=== PATIENT | female | born 1960 | race Caucasian/White ===

== ENCOUNTER 2016-08-10 21:03 | Inpatient (IN) ==
[2016-08-10] MEDS ORDERED: DUONEB (A & A) INH ONE ×2 (22:06→23:37)
[2016-08-10 22:28] LABS: ALLEN TEST YES; BE 5.9 mmoll (-3.0-3.0); BLOOD TYPE ARTERIAL; DRAW SITE R BRACHIAL; METHB 1.6 % (0.0-1.5); O2(CT) 16.6 mL/dL (15.0-23.0); PCO2(98.6) 50 mmHg (35-45); PO2(98.6) 92 mmHg (60-100); SAMPLE BLOOD; SAO2 99.4 % (95.0-100.0); THB 12.3 g/dL (11.5-17.4); pH(98.6) 7.41 (7.35-7.45)
[2016-08-10 22:30] LABS: MODALITY CANNULA
[2016-08-10 22:31] LABS: MANUAL DIFF NEEDED? NO
[2016-08-10 22:33] LABS: BASO% 0.6 % (0.0-0.8); EOS# 0.15 X1000 (0.0-0.7); EOS% 1.7 % (0.0-10.0); HEMATOCRIT 39.6 % (37.0-47.0); HEMOGLOBIN 12.3 g/dL (12.0-16.0); IMM GRAN# 0.02 X1000 (0.0-0.04); IMM GRAN% 0.2 % (0.0-0.5); LYMPH# 1.93 X1000 (1.2-3.4); LYMPH% 22.2 % (20.5-51.1); MCH 25.5 PG (27-31); MCHC 31.1 g/dL (33-37); MCV 82.2 FL (81-99); MONO# 1.03 X1000 (0.11-0.59); MONO% 11.8 % (1.7-9.3); MPV 8.6 FL (7.4-10.4); NEUT% 63.5 % (42.2-75.2); PLT 377 X1000 (130-400); RBC 4.82 XMIL (4.2-5.4)
[2016-08-10 22:46] LABS: AGAP 15; ALBUMIN 3.7 g/dL (3.5-5.0); ALKALINE PHOSPHATASE 118 U/L (32-104); BUN 12 mg/dL (8-22); CALCIUM 8.9 mg/dL (8.8-10.2); CHLORIDE 96 mmol/L (98-107); COSMO 278; GOT 23 U/L (10-30); GPT 13 U/L (10-36); POTASSIUM 3.9 mmol/L (3.5-5.1); SODIUM 138 mmol/L (136-145); TCO2 27 mmol/L (25-35); TOTAL BILIRUBIN 0.22 mg/dL (0.20-1.00); TOTAL PROTEIN 7.6 g/dL (6.3-8.3)
[2016-08-10] MEDS ORDERED: SOLU-MEDROL IV ONE (23:38)
[2016-08-11] MEDS ORDERED: HUMULIN R SUBQ ONE (00:33)
[2016-08-11] MEDS ORDERED: TYLENOL PO ONE (02:59)
[2016-08-11] MEDS ORDERED: DUONEB (A & A) INH ONE (03:52)
--- NOTE | 2016-08-11 05:56 | HISTORY AND PHYSICAL ---
PRIMARY CARE PROVIDER: REESE Mcadams. BEFORE SCHOOL: In the past was Dr. Chase. CHIEF COMPLAINT: Shortness of breath. HISTORY OF PRESENT ILLNESS: Ms. Anat Jauregui is a 55-year-old, female with a history of severe COPD, chronic left leg DVT with a history of having pulmonary emboli who takes Eliquis as her anticoagulant, and who also has a history of diabetes, hypertension, and GERD. States that on Friday evening, she started having some shortness of breath. She went to work on Friday but left due to increasing and worsening shortness of breath. At that time, she did not want to go to the hospital but as the wheezing and shortness of breath increased with some subjective fevers, her daughter talked her into coming. She is audibly wheezing. She also has a history of DVT of the left leg with pulmonary emboli. She has normal kidney function so we will order a CTA of the pulmonary system to rule out pulmonary emboli. Her ABGs show that she has a pH of 7.41, a pCO2 of 40 on 2 L nasal cannula. She continues to be short of breath despite multiple albuterol and Atrovent nebulizations. PAST MEDICAL HISTORY: Pulmonary emboli, DVT of the left leg, on Eliquis. COPD , diabetes mellitus type 2, hypertension, GERD, hyperlipidemia, insomnia, chronic chest pain. SOCIAL HISTORY: She quit smoking 8 years ago but prior to that, she smoked a half pack per day for 35 years. Denies alcohol or illicit drug use. Lives at home with her and 15-year-old daughter, and currently works. SURGICAL HISTORY: Cholecystectomy, section, and left foot tumor removal. FAMILY HISTORY: Father had a heart murmur and from an intestinal blockage. Mother from pneumonia. REVIEW OF SYSTEMS: Fourteen point review of systems was complete and all were negative except for those mentioned above in the HPI. She denies having any cough, coughing up any phlegm. ALLERGIES: Levaquin. HOME MEDICATIONS: Have not been verified but she takes Eliquis 2.5 mg twice daily at home for her DVT history. It looks like she has had a history of taking gabapentin, magnesium, metformin, Januvia, Prilosec, Dulera, albuterol, Spiriva but, again, these medications have not been verified by the nursing staff. LABORATORY DATA: White blood cells 8000, hemoglobin 12, hematocrit 39, platelet count 377,000. ABGs on 2 L nasal cannula, pH is 7.41, pCO2 50, PO2 92, bicarb 29, base excess 5.9, saturation 95%. Lactate 1.5. Sodium 138, potassium 3.9, BUN 12, creatinine 0.9, glucose 126. Total bilirubin 0.22, AST 23, ALT 13. ProBNP 540. Serum lactate is 1.8. IMAGING: Pulmonary CT pending. Chest x-ray, no signs of pulmonary edema, although the costovertebral angles are shadowed. PHYSICAL EXAMINATION: VITAL SIGNS: Temperature 99.8 degrees, heart rate 113, respiratory rate 20, blood pressure 131/79, O2 saturation 100% on 2 L nasal cannula. GENERAL: Ms. Jauregui is a 55-year-old, female. She is in no acute distress. She is able to answer questions appropriately. HEENT: Atraumatic, normocephalic. Pupils equal, round, reactive to light. Extraocular movements intact. No erythema of the oropharynx. NECK: No JVD or carotid bruits noted. CARDIOVASCULAR: S1, S2. Tachycardic rate and rhythm. No rubs, gallops, murmurs. PULMONARY: Expiratory wheezes throughout anterior, posteriorly with prolonged expiration. No accessory muscle use or work of breathing noted. Currently on 2 L nasal cannula. GI: Soft, nontender, nondistended. Positive bowel sounds x4. EXTREMITIES: Left lower extremity mildly swollen compared to the right with some venous stasis changes. She has +2 dorsalis pedal pulses and radial pulses. NEUROLOGIC: A and O x4. Moves all extremities equally. ASSESSMENT AND PLAN: 1. Chronic obstructive pulmonary disease exacerbation. We will do Xopenex nebulizers, given her tachycardic heart rate, with Atrovent, budesonide, and acetylcysteine. She will do intravenous steroids and Rocephin. She does have a low-grade fever of 99.8 but she denies having any productive cough. The shortness of breath or wheezing has been going on for about a day and a half now. She has a history of smoking but quit 8 years ago. 2. Community Acquired Pneumonia. Per Pulmonary CT. Azithromycin and Rocephin. 3. History of deep venous thrombosis in the left leg with history of pulmonary emboli. Given her shortness of breath, pulmonary arteriogram did rule out pulmonary emboli. I will continue her on her Eliquis. She takes 2.5 twice a day. We will do 5 twice a day for now. 4. Diabetes mellitus type 2. We will do sliding scale insulin with pattern blood glucoses at home. She only takes oral medications. Likely may have issues where the blood glucoses will run a little higher, given that she will be on intravenous steroids. 5. Hypertension. Appears to be stable at this moment. We will await for home medications to be verified. 6. Gastroesophageal reflux disease. Continue with a proton pump inhibitor. 7. Deep venous thrombosis prophylaxis. Again, we will resume her Eliquis but at a higher dose of 5 twice a day. Dictated by REESE Fung for Virgen Ruth MD cc: REESE Fung MD Diana Wilhite, CRNP MTDD
[2016-08-11] MEDS ORDERED: ZOFRAN IV PRN (06:08)
[2016-08-11] MEDS ORDERED: TYLENOL PO PRN (06:08)
[2016-08-11] MEDS: NS 1,000 ML IV SCH ×2 (06:34→20:26)
[2016-08-11] MEDS: SOLU-MEDROL IV SCH ×2 (06:35→12:48)
[2016-08-11] MEDS: ROCEPHIN 1 GM/NS 1 GM/50 ML IVPB IV SCH (06:35)
[2016-08-11] MEDS: PRILOSEC PO SCH (07:04)
[2016-08-11] MEDS: HUMULIN R SUBQ SCH ×4 (07:04→20:35)
[2016-08-11] MEDS: XOPENEX NEB INH SCH ×5 (08:33→23:00)
[2016-08-11] MEDS: ATROVENT NEB INH SCH ×5 (08:33→23:00)
[2016-08-11] MEDS: PULMICORT INH SCH ×2 (08:33→19:10)
[2016-08-11] MEDS: MUCOMYST 20% INH SCH ×2 (08:33→19:10)
[2016-08-11] MEDS ORDERED: OSCAL 500 + D PO SCH (09:00)
--- NOTE | 2016-08-11 09:11 | Diag Imaging Result Document ---
PROCEDURE NAME: ANGIOGRAM/PULMONARY ARTERIES - 08/11/2016 CT PULMONARY ANGIOGRAM WITH INTRAVENOUS CONTRAST, 08/11/2016: A CT dose reduction protocol was used. COMPARISON: 12/08/2010. TECHNIQUE: Axial CT images of the chest were obtained after administering intravenous contrast. Coronal MIP images were generated. FINDINGS: There is no pulmonary embolism. There are mildly enlarged left tracheobronchial angle and anterior mediastinal lymph nodes that were present previously. These are slightly larger on today's exam. There is some infiltrate in the right lower lobe and right middle lobe consistent with pneumonia. There is also some trace infiltrate in the left upper lobe. Heart size is normal with no pericardial effusion. Extensive degenerative changes of the thoracic spine. No acute bony lesions. IMPRESSION: Negative for pulmonary embolism. Mild bilateral infiltrates suggesting pneumonia. Slight increase in nonspecific mediastinal adenopathy. MTDD
[2016-08-11] MEDS: ULTRAM PO PRN ×2 (10:36→20:35)
[2016-08-11] MEDS: MAG-OX PO SCH ×2 (10:37→20:29)
[2016-08-11] MEDS: ZITHROMAX 500 MG/NS 500 MG/250 ML IVPB IV SCH (10:37)
[2016-08-11] MEDS: ELIQUIS PO SCH ×2 (10:37→20:29)
[2016-08-11] MEDS: NEURONTIN PO SCH ×2 (10:37→20:29)
--- NOTE | 2016-08-11 11:41 | Diag Imaging Result Document ---
PROCEDURE NAME: CHEST-PORTABLE - 08/10/2016 PORTABLE CHEST: COMPARISON: 06/06/2016. FINDINGS: There are some minimal patchy bilateral infiltrates in the bases. Heart size is normal. No pneumothorax or large effusion. Stable granuloma in the right apex. IMPRESSION: Subtle, patchy bilateral basilar infiltrates suggesting pneumonia.
[2016-08-11] MEDS: LIPITOR PO SCH (20:29)
[2016-08-12] MEDS: SOLU-MEDROL IV SCH ×4 (00:37→19:01)
[2016-08-12] MEDS: XOPENEX NEB INH SCH ×6 (03:20→23:10)
[2016-08-12] MEDS: ATROVENT NEB INH SCH ×6 (03:20→23:10)
[2016-08-12] MEDS: ULTRAM PO PRN (04:24)
[2016-08-12] MEDS: ROCEPHIN 1 GM/NS 1 GM/50 ML IVPB IV SCH (05:47)
[2016-08-12] MEDS: HUMULIN R SUBQ SCH ×4 (06:38→20:36)
[2016-08-12] MEDS: PRILOSEC PO SCH (06:47)
--- NOTE | 2016-08-12 07:00 | EKG Report ---
Test Performed on : 08/10/2016 9:15:28 PM Test Reason : SOB Blood Pressure : / mmHG Vent. Rate : 107 BPM Atrial Rate : 107 BPM P-R Int : 134 ms QRS Dur : 110 ms QT Int : 360 ms P-R-T Axes : -01 -85 077 degrees QTc Int : 480 ms Sinus tachycardia. Left anterior fascicular block Anterolateral infarct , age undetermined Abnormal ECG When compared with ECG of 14-JAN-2015 10:38, Left anterior fascicular block is now present Anterior infarct is now present Anterolateral infarct is now present T wave amplitude has increased in Anterior leads Unconfirmed Result
[2016-08-12 07:10] LABS: BASO% 0.2 % (0.0-0.8); EOS# 0.04 X1000 (0.0-0.7); EOS% 0.4 % (0.0-10.0); HEMATOCRIT 37.6 % (37.0-47.0); HEMOGLOBIN 11.7 g/dL (12.0-16.0); IMM GRAN# 0.03 X1000 (0.0-0.04); IMM GRAN% 0.3 % (0.0-0.5); LYMPH# 1.63 X1000 (1.2-3.4); LYMPH% 14.8 % (20.5-51.1); MANUAL DIFF NEEDED? YES; MCHC 31.1 g/dL (33-37); MCV 83.6 FL (81-99); MONO# 0.38 X1000 (0.11-0.59); MONO% 3.4 % (1.7-9.3); MPV 8.8 FL (7.4-10.4); NEUT% 80.9 % (42.2-75.2); PLT 395 X1000 (130-400)
[2016-08-12 07:26] LABS: AGAP 14; ALBUMIN 3.4 g/dL (3.5-5.0); ALKALINE PHOSPHATASE 99 U/L (32-104); BUN 15 mg/dL (8-22); CALCIUM 8.5 mg/dL (8.8-10.2); CHLORIDE 101 mmol/L (98-107); COSMO 295; GOT 26 U/L (10-30); GPT 18 U/L (10-36); SODIUM 142 mmol/L (136-145); TCO2 27 mmol/L (25-35); TOTAL BILIRUBIN 0.13 mg/dL (0.20-1.00); TOTAL PROTEIN 7.4 g/dL (6.3-8.3)
[2016-08-12 07:28] LABS: BANDS 6 % (0-1); LYMPHS 20 % (21-51)
[2016-08-12] MEDS: PULMICORT INH SCH ×2 (07:55→19:25)
[2016-08-12] MEDS: MUCOMYST 20% INH SCH ×2 (07:55→19:25)
[2016-08-12] MEDS: OSCAL 500 + D PO SCH ×2 (09:04→20:35)
[2016-08-12] MEDS: MAG-OX PO SCH ×2 (09:04→20:35)
[2016-08-12] MEDS: NEURONTIN PO SCH ×2 (09:04→20:35)
[2016-08-12] MEDS: ELIQUIS PO SCH ×2 (09:04→20:35)
[2016-08-12] MEDS: ZITHROMAX 500 MG/NS 500 MG/250 ML IVPB IV SCH (09:04)
[2016-08-12] MEDS: LANTUS SUBQ SCH (09:06)
[2016-08-12] MEDS: NS 1,000 ML IV SCH (10:15)
[2016-08-12] MEDS ORDERED: LASIX IV ONE (11:15)
--- NOTE | 2016-08-12 15:28 | PROGRESS NOTE ---
DATE: 08/12/2016 SUBJECTIVE: This patient states that she is feeling better, she denies nausea, vomiting, no diarrhea, no constipation. She is still having shortness of breath, but compared with yesterday is better. OBJECTIVE: Vital Signs: Temperature 98, pulse 97, respiratory rate 18, blood pressure 131/63, O2 saturation 98% on 2 L of nasal cannula. HEENT: Head normocephalic. No trauma. PERRLA. Neck: Supple. No JVD. No masses. Central trachea. Chest: Clear to auscultation, bilateral end- expiratory wheezing. Prolonged expiratory phase. No rales. No crackles. Abdomen: Soft, nontender, nondistended. No hepatosplenomegaly. Cardiovascular: Regular rhythm and rate. No murmurs. Extremities: Trace edema. No clubbing. No cyanosis. Neurological: The patient is alert and oriented x3. No focal neurological deficits. LABORATORY: WBC 11, hemoglobin 11.7, hematocrit 37.6, platelets 395,000. Sodium 142, potassium 4, chloride 101, bicarbonate 27, BUN 15, creatinine 0.8, glucose 292, calcium 8.5, albumin 3.4. ASSESSMENT AND PLAN: 1. Chronic obstructive pulmonary disease exacerbation. We will continue with nebulization and steroids. Continue with antibiotics as well, breathing treatment and pulmonary toilet. She is getting better. 2. Community-acquired pneumonia. Continue with ceftriaxone and azithromycin. 3. History of deep venous thrombosis in the left leg with history of pulmonary emboli. We will continue with Eliquis. She takes 2.5 twice a day. We will do 5 twice a day for now. 4. Type 2 diabetes. She has been on sliding scale, but today I will put this patient on Lantus, 10 units q.a.m. and I will monitor the blood sugar. 5. Hypertension, stable. Continue with home medication. 6. Gastroesophageal reflux disease. Continue with proton pump inhibitor. 7. Deep venous thrombosis prophylaxis. Continue with Eliquis. cc: Chase Mckeon MD
[2016-08-12] MEDS: LIPITOR PO SCH (20:35)
[2016-08-12] MEDS: MORPHINE IV PRN (20:37)
[2016-08-13] MEDS: SOLU-MEDROL IV SCH ×4 (00:25→21:58)
[2016-08-13] MEDS: MORPHINE IV PRN ×2 (00:27→21:22)
[2016-08-13] MEDS: ATROVENT NEB INH SCH ×6 (03:33→23:10)
[2016-08-13] MEDS: XOPENEX NEB INH SCH ×6 (03:33→23:10)
[2016-08-13] MEDS: PRILOSEC PO SCH (06:00)
[2016-08-13] MEDS: ROCEPHIN 1 GM/NS 1 GM/50 ML IVPB IV SCH (06:12)
[2016-08-13] MEDS: HUMULIN R SUBQ SCH ×4 (06:46→22:01)
[2016-08-13 07:41] LABS: BASO% 0.1 % (0.0-0.8); EOS# 0.01 X1000 (0.0-0.7); EOS% 0.1 % (0.0-10.0); HEMATOCRIT 35.8 % (37.0-47.0); HEMOGLOBIN 10.8 g/dL (12.0-16.0); IMM GRAN# 0.07 X1000 (0.0-0.04); IMM GRAN% 0.4 % (0.0-0.5); LYMPH# 1.79 X1000 (1.2-3.4); LYMPH% 11.2 % (20.5-51.1); MANUAL DIFF NEEDED? YES; MCH 25.5 PG (27-31); MCHC 30.2 g/dL (33-37); MCV 84.4 FL (81-99); MONO# 0.43 X1000 (0.11-0.59); MONO% 2.7 % (1.7-9.3); MPV 9.2 FL (7.4-10.4); NEUT% 85.5 % (42.2-75.2); PLT 361 X1000 (130-400); RBC 4.24 XMIL (4.2-5.4)
[2016-08-13 07:44] LABS: AGAP 15; BUN 19 mg/dL (8-22); CALCIUM 8.4 mg/dL (8.8-10.2); CHLORIDE 98 mmol/L (98-107); COSMO 284; POTASSIUM 4.5 mmol/L (3.5-5.1); SODIUM 137 mmol/L (136-145); TCO2 24 mmol/L (25-35)
[2016-08-13] MEDS: ZITHROMAX 500 MG/NS 500 MG/250 ML IVPB IV SCH (07:56)
[2016-08-13] MEDS: NEURONTIN PO SCH ×2 (08:01→21:58)
[2016-08-13] MEDS: OSCAL 500 + D PO SCH ×2 (08:01→21:58)
[2016-08-13] MEDS: MAG-OX PO SCH ×2 (08:01→21:58)
[2016-08-13] MEDS: ELIQUIS PO SCH ×2 (08:01→22:03)
[2016-08-13] MEDS: LANTUS SUBQ SCH (08:02)
[2016-08-13 08:08] LABS: BANDS 2 % (0-1); LYMPHS 16 % (21-51)
[2016-08-13] MEDS: MUCOMYST 20% INH SCH ×2 (08:15→19:25)
[2016-08-13] MEDS: PULMICORT INH SCH ×2 (08:15→19:25)
[2016-08-13] MEDS ORDERED: DULCOLAX PR ONE (13:16)
--- NOTE | 2016-08-13 13:52 | PROGRESS NOTE ---
DATE: 08/13/2016 SUBJECTIVE: This patient states that she is feeling better. She is complaining of constipation. She denies nausea, vomiting, or diarrhea. She is still having mild shortness of breath, but compared with yesterday she is better. Probably this patient will stay 1 or 2 more days and then she will be discharged home. OBJECTIVE: Vital Signs: Temperature 97.7 degrees, pulse 94, respiratory rate 28, blood pressure 132/72, oxygen saturation 96 on room air. HEENT: Head normocephalic. No trauma. PERRLA. Neck: Supple. No JVD. No masses. Central trachea. Chest: Clear to auscultation bilateral and end- expiatory wheezing, but compared with yesterday it is much better. Prolonged expiatory phase. No rales. No crackles. Abdomen: Soft, nontender, nondistended. No hepatosplenomegaly. Cardiovascular: RRR. No murmurs. No gallops. No rubs. Extremities: No edema. No clubbing. No cyanosis. Neurological examination: The patient is alert and oriented x3. No focal neurological deficits. LABORATORY: WBC 16, hemoglobin 10.8, hematocrit 35.8, platelets 361. Sodium 137, potassium 4.5, chloride 98, bicarbonate 24, BUN 19, creatinine 0.8, glucose 243, calcium 8.4. ASSESSMENT AND PLAN: 1. Chronic obstructive pulmonary disease exacerbation. We will continue with nebulization and steroids. I will decrease the dose of steroids from 80 q. 6 hours to 40 q. 8 hours intravenous. Continue with antibiotics as well, breathing treatment and pulmonary toilet. She is getting better. 2. Community-acquired pneumonia. Continue with ceftriaxone and azithromycin. 3. History of deep vein thrombosis in the left leg with history of pulmonary emboli. Continue with Eliquis. She takes 2.5 twice a day. We will do 5 twice a day for now. 4. Type 2 diabetes. She has been on sliding scale. Yesterday, I put this patient on Lantus 10, but I will increase the dose of Lantus to 20 every morning. I will continue monitoring the blood sugar. 5. Hypertension, stable. Continue home medication. 6. Gastroesophageal reflux disease. Continue with proton pump inhibitors. 7. Deep vein thrombosis prophylaxis. Continue with Eliquis. 8. Constipation. I will use Dulcolax suppository and MiraLAX daily oral. cc: Chase Mckeon MD
[2016-08-13] MEDS: LIPITOR PO SCH (21:58)
[2016-08-14] MEDS: XOPENEX NEB INH SCH ×6 (03:40→23:00)
[2016-08-14] MEDS: ATROVENT NEB INH SCH ×6 (03:40→23:00)
[2016-08-14] MEDS: ROCEPHIN 1 GM/NS 1 GM/50 ML IVPB IV SCH (05:46)
[2016-08-14] MEDS: SOLU-MEDROL IV SCH ×2 (05:46→12:17)
[2016-08-14] MEDS: MIRALAX PO SCH ×2 (05:58→10:57)
[2016-08-14] MEDS: HUMULIN R SUBQ SCH ×5 (06:19→20:36)
[2016-08-14 06:53] LABS: MANUAL DIFF NEEDED? NO
[2016-08-14 06:58] LABS: BASO% 0.1 % (0.0-0.8); HEMATOCRIT 36.3 % (37.0-47.0); IMM GRAN# 0.14 X1000 (0.0-0.04); IMM GRAN% 0.9 % (0.0-0.5); LYMPH# 2.28 X1000 (1.2-3.4); LYMPH% 14.8 % (20.5-51.1); MCH 25.5 PG (27-31); MCHC 30.3 g/dL (33-37); MCV 84.2 FL (81-99); MONO# 0.75 X1000 (0.11-0.59); MONO% 4.9 % (1.7-9.3); MPV 8.7 FL (7.4-10.4); NEUT% 79.3 % (42.2-75.2); PLT 382 X1000 (130-400); RBC 4.31 XMIL (4.2-5.4)
[2016-08-14] MEDS: PRILOSEC PO SCH (07:12)
[2016-08-14 07:29] LABS: AGAP 12; BUN 26 mg/dL (8-22); CALCIUM 8.6 mg/dL (8.8-10.2); CHLORIDE 97 mmol/L (98-107); COSMO 289; POTASSIUM 4.4 mmol/L (3.5-5.1); SODIUM 139 mmol/L (136-145); TCO2 30 mmol/L (25-35)
[2016-08-14] MEDS: ZITHROMAX 500 MG/NS 500 MG/250 ML IVPB IV SCH (08:09)
[2016-08-14] MEDS: OSCAL 500 + D PO SCH ×2 (08:10→20:36)
[2016-08-14] MEDS: ELIQUIS PO SCH ×2 (08:10→20:36)
[2016-08-14] MEDS: NEURONTIN PO SCH ×2 (08:10→20:36)
[2016-08-14] MEDS: MAG-OX PO SCH ×2 (08:10→20:36)
[2016-08-14] MEDS: LANTUS SUBQ SCH (08:11)
[2016-08-14] MEDS: PULMICORT INH SCH ×2 (08:22→19:38)
[2016-08-14] MEDS: MUCOMYST 20% INH SCH ×2 (08:23→19:37)
--- NOTE | 2016-08-14 15:04 | PROGRESS NOTE ---
DATE: 08/14/2016 SUBJECTIVE: This patient states that she is feeling better. She had a nasal bleed during the night, likely secondary to oxygen, the right nose. She is not having shortness of breath today or respiratory distress. Probably I will discharge this patient tomorrow morning. I will decrease the dose of the steroids. OBJECTIVE: Vital Signs: Temperature 98.1 degrees, pulse 83, respiratory rate 18, blood pressure 162/82, oxygen saturation 98 on room air. HEENT: Head normocephalic. No trauma. PERRLA. Neck: Supple. No JVD. No masses. Central trachea. Chest: Clear to auscultation with mild end- expiatory wheezing that has been much better compared with admission. Prolonged expiratory phase. No rales. No crackles. Abdomen: Soft, nontender, nondistended. No hepatosplenomegaly. Cardiovascular: RRR. No murmurs. Extremities: No edema. No clubbing. Neurological: This patient is alert and oriented x3. No focal deficits. LABORATORY: WBC 15.3, hemoglobin 11, hematocrit 36.3, platelets 382,000. Sodium 139, potassium 4.4, chloride 97, bicarbonate 30, BUN 26, creatinine 0.8, glucose 212, calcium 8.6. ASSESSMENT AND PLAN: 1. Chronic obstructive pulmonary disease exacerbation. Continue with nebulization and steroids. I decreased the dose of steroids from 40 q.8 hours to 40 q.12 hours. Continue with antibiotics, breathing treatment, and pulmonary toilet. She is getting better. I will probably discharge this patient tomorrow. 2. Community-acquired pneumonia. Continue with ceftriaxone and azithromycin. 3. History of deep vein thrombosis in the left leg with history of pulmonary emboli. Continue with Eliquis. 4. Type 2 diabetes. She has been on sliding scale. Yesterday I increased the Lantus to 20. The blood sugar is a little bit better. Continue to monitor. 5. Hypertension, stable. Continue with home medication. 6. Gastroesophageal reflux disease. Continue with PPIs. 7. Deep vein thrombosis prophylaxis. Continue with Eliquis. 8. Constipation. Continue with MiraLAX daily. cc: Chase Mckeon MD
[2016-08-14] MEDS: MORPHINE IV PRN (20:34)
[2016-08-14] MEDS: LIPITOR PO SCH (20:36)
[2016-08-14] MEDS ORDERED: SOLU-MEDROL IV SCH (23:30)
[2016-08-14] MEDS: ULTRAM PO PRN (23:47)
[2016-08-15] MEDS: MORPHINE IV PRN (02:16)
[2016-08-15] MEDS: ATROVENT NEB INH SCH ×4 (03:14→15:56)
[2016-08-15] MEDS: XOPENEX NEB INH SCH ×4 (03:15→15:56)
[2016-08-15] MEDS: ROCEPHIN 1 GM/NS 1 GM/50 ML IVPB IV SCH (06:24)
[2016-08-15] MEDS: HUMULIN R SUBQ SCH ×2 (06:25→12:30)
[2016-08-15] MEDS: PRILOSEC PO SCH (06:25)
[2016-08-15 06:49] LABS: MANUAL DIFF NEEDED? NO
[2016-08-15 06:59] LABS: BASO% 0.1 % (0.0-0.8); EOS# 0.03 X1000 (0.0-0.7); EOS% 0.2 % (0.0-10.0); HEMATOCRIT 38.4 % (37.0-47.0); HEMOGLOBIN 11.9 g/dL (12.0-16.0); IMM GRAN# 0.14 X1000 (0.0-0.04); LYMPH# 2.25 X1000 (1.2-3.4); LYMPH% 16.7 % (20.5-51.1); MCH 25.6 PG (27-31); MCV 82.8 FL (81-99); MONO# 0.62 X1000 (0.11-0.59); MONO% 4.6 % (1.7-9.3); MPV 8.7 FL (7.4-10.4); NEUT% 77.4 % (42.2-75.2); PLT 380 X1000 (130-400); RBC 4.64 XMIL (4.2-5.4)
[2016-08-15 07:19] LABS: AGAP 12; BUN 22 mg/dL (8-22); CHLORIDE 97 mmol/L (98-107); COSMO 285; POTASSIUM 4.8 mmol/L (3.5-5.1); SODIUM 139 mmol/L (136-145); TCO2 30 mmol/L (25-35)
[2016-08-15] MEDS ORDERED: INSULIN PEN NEEDLES ONE (07:38)
[2016-08-15] MEDS: MUCOMYST 20% INH SCH (07:44)
[2016-08-15] MEDS: PULMICORT INH SCH (07:44)
[2016-08-15] MEDS: ZITHROMAX 500 MG/NS 500 MG/250 ML IVPB IV SCH (08:38)
[2016-08-15] MEDS: MAG-OX PO SCH (08:38)
[2016-08-15] MEDS: NEURONTIN PO SCH (08:38)
[2016-08-15] MEDS: ELIQUIS PO SCH (08:38)
[2016-08-15] MEDS: MIRALAX PO SCH (08:38)
[2016-08-15] MEDS: OSCAL 500 + D PO SCH (08:38)
[2016-08-15] MEDS: LANTUS SUBQ SCH (08:39)
[2016-08-15 12:11] VITALS: BP 130/75
--- NOTE | 2016-08-15 16:10 | DISCHARGE SUMMARY ---
ADMISSION DATE: 08/11/2016 DISCHARGE DATE: 08/15/2016 CONSULTATIONS: None. PERTINENT PROCEDURES: Pulmonary arteriogram is negative for PE. It showed mild bilateral infiltrates suggesting pneumonia, slight increase in nonspecific mediastinal adenopathy. DISCHARGE DIAGNOSES: 1. Chronic obstructive pulmonary disease exacerbation resolved. 2. Community-acquired pneumonia. Continue with p.o. antibiotics. 3. History of deep vein thrombosis in the left leg with history of pulmonary emboli. Continue with Eliquis. 4. Diabetes mellitus type 2. Continue home medications. 5. Hypertension stable. 6. Gastroesophageal reflux disease. Continue with proton pump inhibitor. 7. Constipation. Continue with MiraLAX daily. HOSPITAL COURSE: Briefly, Ms. Jauregui is a 55-year-old, female with a history of severe COPD and chronic left DVT with history of having pulmonary emboli who takes Eliquis as her anticoagulation. She also has a history of diabetes mellitus, hypertension, and GERD. She states on Friday evening she started having shortness of breath. She went to work on Friday but left due to increasing worsening shortness of breath. At that time she did not want to go to the hospital but as the wheezing and shortness of breath increased with some subjective fevers she came to the ED. She was audibly wheezing. She underwent a CT of the chest that was negative. ABG showed a pH of 7.41 with pCO2 of 40 on 2 L nasal cannula. She continued to be short of breath despite multiple albuterol and Atrovent nebulizers. Patient was admitted for COPD exacerbation as well as community-acquired pneumonia. Patient was continued on bronchodilators, supplemental O2 as well as home medication and aggressive pulmonary toilet. Clinically the patient has improved and she is appropriate for discharge today. VITAL SIGNS AT DISCHARGE: Temperature 98 degrees, heart rate 82, respirations 20, blood pressure 130/75, O2 is 97% on room air. DISCHARGE MEDICATIONS: As per Dr. Harley. Please see MAR. DISCHARGE DIET: Diabetic. FOLLOWUP: Patient is being discharged home. She will need to follow up with the primary care physician from a list provided to her. She will need to continue with her home medications as well as continue on her p.o. antibiotics. Patient can return to the ED for any worsening of symptoms. DISCHARGE TIME: 30 minutes. Dictated by REESE Sheridan for Chase Mckeon MD cc: Chase Mckeon MD
[2016-08-15] MEDS ORDERED: DOXYCYCLINE PO SCH (21:00)
[2016-08-16] MEDS ORDERED: PREDNISONE PO SCH (09:00)
--- NOTE | 2016-08-16 14:49 | Extremity Venous Study ---
PROCEDURE NAME: Venous U/S Bilateral Legs - 08/11/2016 REFERRING PHYSICIAN: Chito. READING PHYSICIAN: Elizabeth. TEACHER OF THE DEAF: Rad. INDICATION: History of pulmonary embolus and patient shortness of breath. Comparison to study on 04/25/2016. FINDINGS: The deep and superficial veins of the right lower extremity were imaged 1st. All are compressible with forward flow. No thrombus identified. The deep and superficial veins of the left lower extremity were then imaged. There is thrombosis and non-compressibility of the left posterior tibial vein. The other deep and superficial veins were compressible and without thrombus and with forward flow. INTERPRETATION: There is a new deep vein thrombosis of the left posterior tibial vein. cc: MD Toshia Monteiro CRNP
--- NOTE | 2016-08-28 13:44 | PROVIDER DOCUMENTATION ---
This chart was entered by Weston Block Scribe, acting as scribe for Luis Buckner MD. HPI-Respiratory General - General Chief Complaint: Shortness of Breath Stated Complaint: ASTHMA, WHEEZING Time Seen by Provider: 08/10/16 23:16 Source: patient Allergies/Adverse Reactions: Patient Allergies Allergy/AdvReac Type Severity Reaction Status Date / Time levofloxacin [From Levaquin] Allergy ANAPHYLAXIS Verified 08/10/16 21:38 Home Medications: Home Medication List Medication Instructions Recorded Confirmed Last Taken Type Black Cohosh 540 mg PO DAILY 01/21/12 08/11/16 01/19/16 History Calcium Carb/Vit D3/Minerals 600 mg PO BID 01/21/12 08/11/16 01/20/16 History [Calcium 600 + D Tablet] Magnesium 250 mg PO BID 01/21/12 08/11/16 01/20/16 History Metformin [Glucophage] 500 mg PO BID 01/21/12 08/11/16 04/13/16 History Omeprazole [Prilosec] 40 mg PO DAILY 01/21/12 08/11/16 01/20/16 History Triamterene/Hydrochlorothiazid 37 mg PO DIRECTED 01/21/12 08/11/16 01/19/16 05:00 History [Dyazide 37.5-25 Capsule] Zinc [Zinc Chelated] 50 mg PO DAILY 01/21/12 08/11/16 04/13/16 History Albuterol [Albuterol Neb] 2.5 mg INH [id number] 07/26/12 08/11/16 01/20/16 12:15 History Gabapentin 600 mg PO TID 05/12/14 08/11/16 01/20/16 History Sitagliptin Phosphate [Januvia] 100 mg PO DAILY 01/14/15 08/11/16 01/19/16 17: 30 History Amlodipine Besylate 2.5 mg PO DAILY 08/11/16 08/11/16 Unknown History Apixaban [Eliquis] 2.5 mg PO BID 08/11/16 08/11/16 Unknown History Dicyclomine [Bentyl] 10 mg PO TID AC 08/11/16 08/11/16 Unknown History Montelukast Sodium [Singulair] 10 mg PO DAILY 08/11/16 08/11/16 Unknown History Paroxetine [Paxil] 10 mg PO DAILY 08/11/16 08/11/16 Unknown History Ranitidine [Zantac] 150 mg PO DAILY 08/11/16 08/11/16 Unknown History Zolpidem [Ambien] 5 mg PO QHS 08/11/16 08/11/16 Unknown History ATORVAstatin [Lipitor] 10 mg PO HS #90 tablet 08/15/16 Unknown Rx Doxycycline 100 mg PO BID #10 capsule 08/15/16 Unknown Rx Polyethylene Glycol 3350 [Miralax] 17 gm PO DAILY powder, packet 08/15/16 Unknown Rx Prednisone 40 mg PO DAILY #50 tablet 08/15/16 Unknown Rx Tramadol [Ultram] 50 mg PO TID PRN PRN #20 tablet 08/15/16 Unknown Rx Review of Systems - Adult - REVIEW OF SYSTEMS - ADULT Constitutional: reports: no symptoms reported Eyes: reports: no symptoms reported Ears, Nose, Mouth & Throat: reports: no symptoms reported Cardiovascular: reports: no symptoms reported Respiratory: reports: shortness of breath. denies: wheezing Gastrointestinal: reports: no symptoms reported Genitourinary: reports: no symptoms reported Musculoskeletal: reports: no symptoms reported Integumentary: reports: no symptoms reported Neurological: reports: no symptoms reported Psychiatric: reports: no symptoms reported Endocrine: reports: no symptoms reported Hematologic/Lymphatic: reports: no symptoms reported Allergic/Immunologic: reports: no symptoms reported All Other Systems: Reviewed and Negative Past History - Adult - PAST MEDICAL HISTORY-ADULT Review of Records: reports: Old Records Reviewed, Nursing Assessment Review, Medications Reviewed Major Childhood Illnesses: reports: history unknown Cardiovascular: reports: blood clots (legs) Respiratory: reports: asthma, COPD Gastrointestinal: reports: denies history Obstetrical/Gynecological: reports: denies history Genitourinary: reports: denies history Musculoskeletal: reports: denies history Neurological: reports: denies history Psychiatric: reports: denies history Endocrine/Immune: reports: cancer (breast cancer), immunosuppression, other ( lymph nodes removed from right axilla) - IMMUNIZATION STATUS Childhood Immunizations: See Nurse Assessment Flu Vaccine: See Nurse Assessment Physical Exam-General - CONSTITUTIONAL General Appearance: alert, no apparent distress Progress - PLAN OF CARE/RESULTS Result Diagrams: 08/15/16 06:45 08/15/16 06:45 - REASSESSMENT Reassessment #1 Time Reassessed: 00:46 Status: improving (Pt reports that her wheezing has gotten better after 2 breathing treatments) Reassessment #2 Time Reassessed: 02:26 Status: worsening (Pt's wheezing has gotten worse. Pt is 95% O2 on 2L NC) - EKG 1 Time of EKG reading by physician:: 23:56 EKG Read and Signed by:: Luis Buckner EKG Interpretation (*Must complete 3 of following elements*): Abnormal (L anterior fascicular block; Anterolateral infarct, age undetermined) Rate: 107 Rhythm: Sinus tachycardia - XRAY 1 XRAY: Bilateral XRAY Study: Chest Impression: See EMR Report Departure - Departure Time of Disposition Decision: 05:40 DIAGNOSIS: COPD exacerbation Disposition: ADMITTED INPATIENT 09 Certified Medical Emergency: Emergent Condition: Stable - Critical Care Note This patient required my direct personal management.: No This chart was documented by the indicated scribe, (Weston Block, Scrkylie) and accurately reflects the services I performed and decisions made by me, Luis Buckner MD, as attested by the provider's signature.
== END 2016-08-15 16:38 | disposition home or self-care (01) ==
LOC: ED 21:03 → 3N 08-11 04:57 → SUATTDRO 08-11 04:57
PROVIDERS: ATTEND Internal Medicine

== ENCOUNTER 2018-07-18 12:02 | Inpatient (IN) ==
[2018-07-18] MEDS ORDERED: SOLU-MEDROL IV ONE (13:37)
[2018-07-18] MEDS ORDERED: DUONEB (A & A) INH ONE (13:37)
[2018-07-18 14:15] LABS: BASO# 0.02 X1000 (0.0-0.2); BASO% 0.1 % (0.0-0.8); EOS# 0.01 X1000 (0.0-0.7); HEMATOCRIT 38.8 % (37.0-47.0); IMM GRAN# 0.09 X1000 (0.0-0.04); IMM GRAN% 0.4 % (0.0-0.5); LYMPH# 2.59 X1000 (1.2-3.4); LYMPH% 12.3 % (20.5-51.1); MCH 26.8 PG (27-31); MCHC 30.9 g/dL (33-37); MCV 86.6 FL (81-99); MONO# 2.29 X1000 (0.11-0.59); MONO% 10.8 % (1.7-9.3); MPV 8.8 FL (7.4-10.4); NEUT# 16.11 X1000 (1.4-6.5); NEUT% 76.4 % (42.2-75.2); PLT 447 X1000 (130-400); RBC 4.48 XMIL (4.2-5.4); RDW 13.9 % (11.5-14.5); WBC 21.11 X1000 (4.8-10.8)
[2018-07-18 14:17] LABS: URINE SOURCE CLEAN CATCH
[2018-07-18 14:20] LABS: BILIRUBIN URINE NEGATIVE (NEGATIVE); BLOOD URINE NEGATIVE (NEGATIVE); COLOR YELLOW; GLUCOSE URINE NEGATIVE (NEGATIVE); KETONE URINE NEGATIVE (NEGATIVE); LEUKOCYTES URINE NEGATIVE (NEGATIVE); NITRITE URINE NEGATIVE (NEGATIVE); PROTEIN URINE 50 mg/dL (NEGATIVE); SP GRAVITY URINE 1.014; TURBIDITY URINE CLEAR (CLEAR); UROBILINOGEN URINE NORMAL (NORMAL)
[2018-07-18 14:21] LABS: UR EPITHELIAL CELLS <10 /HPF (<10); URINE BACTERIA NEGATIVE /HPF; URINE RBC <10 /HPF (<10); URINE WBC <10 /HPF (<10)
--- NOTE | 2018-07-18 14:42 | PROVIDER DOCUMENTATION ---
This chart was entered by Elenita Clark Scribe, acting as scribe for Jadyn Medina CRNP. HPI-Respiratory General - General Chief Complaint: Shortness of Breath Stated Complaint: SOB Time Seen by Provider: 07/18/18 13:32 Source: patient Allergies/Adverse Reactions: Patient Allergies Allergy/AdvReac Type Severity Reaction Status Date / Time levofloxacin [From Levaquin] Allergy ANAPHYLAXIS Verified 05/11/17 23:15 Home Medications: Home Medication List Medication Instructions Recorded Confirmed Last Taken Type Black Cohosh 540 mg PO HS 01/21/12 05/11/17 05/11/17 16:00 History Calcium Carb/Vit D3/Minerals 600 mg PO BID 01/21/12 05/11/17 05/11/17 16:00 History [Calcium 600 + D Tablet] Magnesium 250 mg PO BID 01/21/12 05/11/17 05/11/17 16:00 History Metformin [Glucophage] 500 mg PO BID 01/21/12 05/11/17 05/11/17 16:00 History Omeprazole [Prilosec] 40 mg PO QAM 01/21/12 05/11/17 05/11/17 06:00 History Zinc [Zinc Chelated] 50 mg PO QHS 01/21/12 05/11/17 05/11/17 16:00 History Albuterol [Albuterol Neb] 2.5 mg INH [id number] 07/26/12 05/11/17 05/11/17 14:00 History Gabapentin 600 mg PO BID 05/12/14 05/11/17 05/11/17 16:00 History Sitagliptin Phosphate [Januvia] 100 mg PO BID 01/14/15 05/11/17 05/11/17 16:00 History Amlodipine Besylate 2.5 mg PO QHS 08/11/16 05/11/17 05/11/17 19:00 History Apixaban [Eliquis] 5 mg PO BID 08/11/16 05/11/17 05/11/17 16:00 History Dicyclomine [Bentyl] 10 mg PO TID AC 08/11/16 05/11/17 05/11/17 16:00 History Montelukast Sodium [Singulair] 10 mg PO QHS 08/11/16 05/11/17 05/11/17 16:00 History Paroxetine [Paxil] 10 mg PO QHS 08/11/16 05/11/17 05/11/17 19:00 History Zolpidem [Ambien] 5 mg PO QHS 08/11/16 05/11/17 05/11/17 19:00 History ATORVAstatin [Lipitor] 10 mg PO HS #90 tablet 08/15/16 05/11/17 05/11/17 16:00 Rx Tramadol [Ultram] 50 mg PO TID PRN PRN #20 tablet 08/15/16 05/11/17 Unknown Rx - History of Present Illness-Resp Nature of Presenting Problem: 57yof with hx of asthma, COPD, diabetes, HTN c/o sob since this morning. She reports she visited her PCP recently and was told she has COPD exacerbation. She reports she is on 3L oxygen at home and usually uses it at night, but has recently been using oxygen during the day as well. She denies fever, chills, nausea, vomiting, diarrhea, cp. Quality of Pain: reports: none Severity in ED: reports: mild Onset/Duration: reports: this morning Timing: reports: still present, constant Cough Quality/Degree: reports: no cough Episode Frequency: other (pt has hx of COPD) Current Respiratory Medication Therapy: Initiated see nurses note Modifying Factors: improves with: nothing Associated Symptoms: reports: shortness of breath. denies: cough, fever/chills Similar Symptoms Previously?: No Recently seen or treated by another doctor?: No Review of Systems - Adult - REVIEW OF SYSTEMS - ADULT Constitutional: denies: chills, fever Eyes: denies: discharge, dry eyes Ears, Nose, Mouth & Throat: denies: ear discharge, ear pain Cardiovascular: denies: chest pain, palpitations Respiratory: reports: shortness of breath. denies: cough Gastrointestinal: denies: abdominal pain, diarrhea, nausea, vomiting Genitourinary: denies: dysuria, hematuria Musculoskeletal: denies: back pain, muscle aches, muscle weakness Integumentary: reports: no symptoms reported Neurological: denies: dizziness/vertigo, headache/migraines Psychiatric: reports: no symptoms reported Endocrine: reports: no symptoms reported Hematologic/Lymphatic: reports: no symptoms reported Allergic/Immunologic: reports: no symptoms reported All Other Systems: Reviewed and Negative Past History - Adult - PAST MEDICAL HISTORY-ADULT Review of Records: reports: Old Records Reviewed, Nursing Assessment Review, Medications Reviewed Major Childhood Illnesses: reports: history unknown Cardiovascular: reports: blood clots (legs), HTN Respiratory: reports: asthma, COPD Gastrointestinal: reports: denies history Obstetrical/Gynecological: reports: denies history Genitourinary: reports: denies history Musculoskeletal: reports: denies history Neurological: reports: denies history Psychiatric: reports: denies history Endocrine/Immune: reports: cancer (breast cancer), Diabetes, immunosuppression, other (lymph nodes removed from right axilla) - PRIOR SURGERIES/PROCEDURES Surgical/Procedure History: reports: cholecystectomy, - IMMUNIZATION STATUS Childhood Immunizations: See Nurse Assessment Flu Vaccine: See Nurse Assessment - FAMILY HISTORY Family History: reviewed, not pertinent - SOCIAL HISTORY Smoking: other (former) Substance Use: denies Living Situation: family Physical Exam-General - PHYSICAL EXAM-ADULT Initial Vital Signs Reviewed: Yes - CONSTITUTIONAL General Appearance: alert, mild distress, obese, other (oxygen via nasal cannula) - EYES Eyes: PERRL/EOMI, pink conjunctivae - HEAD, EARS, NOSE, MOUTH & THROAT HENMT: normocephalic/atraumatic, moist mucous membranes - NECK Neck: non-tender, supple - RESPIRATORY Respiratory: rhonchi (bilaterally) - CARDIOVASCULAR Cardiovascular: no murmur, tachycardia - GASTROINTESTINAL (ABDOMEN) Abdominal Exam: non tender, soft - MUSCULOSKELETAL Extremity: normal range of motion, non-tender, normal inspection, no pedal edema - SKIN Integumentary: normal color, warm/dry - NEUROLOGIC Neurologic: grossly normal, no motor/sensory deficits - PSYCHIATRIC Psych/Mental Status: normal mood/affect, normal thought content, normal thought process, oriented x 3 Progress - PLAN OF CARE/RESULTS Progress/Plan/Lab Results: Vital Signs - 8 hr 07/18/18 12:23 07/18/18 12:44 07/18/18 13:00 Temperature 99.3 F Pulse Rate 109 H 107 H 103 H Respiratory Rate 20 22 Blood Pressure 125/76 O2 Sat by Pulse Oximetry 95 95 96 07/18/18 13:10 07/18/18 13:20 07/18/18 13:30 Temperature Pulse Rate 101 H 99 H 105 H Respiratory Rate Blood Pressure O2 Sat by Pulse Oximetry 96 96 95 07/18/18 13:40 07/18/18 13:45 07/18/18 13:49 Temperature Pulse Rate 103 H 95 H 105 H Respiratory Rate 20 Blood Pressure 130/89 O2 Sat by Pulse Oximetry 96 95 07/18/18 14:09 07/18/18 14:10 Temperature Pulse Rate 109 H 110 H Respiratory Rate Blood Pressure O2 Sat by Pulse Oximetry 92 L 93 L Laboratory Results - last 24 hr 07/18/18 07/18/18 07/18/18 13:52 13:52 13:52 WBC 21.11 H RBC 4.48 Hgb 12.0 Hct 38.8 MCV 86.6 MCH 26.8 L MCHC 30.9 L RDW Std Deviation 13.9 Plt Count 447 H MPV 8.8 Immature Gran % (Auto) 0.4 Neut % (Auto) 76.4 H Lymph % (Auto) 12.3 L Sutton % (Auto) 10.8 H Eos % (Auto) 0.0 Baso % (Auto) 0.1 Immature Gran # (Auto) 0.09 H Neut # (Auto) 16.11 H Lymph # (Auto) 2.59 Sutton # (Auto) 2.29 H Eos # (Auto) 0.01 Baso # (Auto) 0.02 Sodium 134 L Potassium 4.5 Chloride 94 L Carbon Dioxide 33 Anion Gap 7 BUN 15 Creatinine 0.9 Estimated GFR/1.73 m2 > 60 BUN/Creatinine Ratio 17 Glucose 221 H Calculated Osmolality 276 Calcium 8.6 L Total Bilirubin 0.36 AST 21 ALT 18 Alkaline Phosphatase 105 H Creatine Kinase 191 H Creatine Kinase Index 2.6 H CK-MB (CK-2) 4.94 Troponin T Kgo-M-Iolwzupxygh Pept 597 H Total Protein 6.5 Albumin 3.7 Globulin 2.8 Albumin/Globulin Ratio 1.3 Plasma Lactate Urine Source Urine Color Urine Turbidity Urine pH Ur Specific [place] Urine Protein Ur Glucose (Stick) Ur Ketones (Stick) Urine Blood Urine Nitrite Urine Bilirubin Urobilinogen Dipstick Urine Leukocytes Urine WBC (Auto) Urine RBC (Auto) U Epithel Cells (Auto) Urine Bacteria (Auto) 07/18/18 07/18/18 07/18/18 13:52 13:52 14:48 WBC RBC Hgb Hct MCV MCH MCHC RDW Std Deviation Plt Count MPV Immature Gran % (Auto) Neut % (Auto) Lymph % (Auto) Sutton % (Auto) Eos % (Auto) Baso % (Auto) Immature Gran # (Auto) Neut # (Auto) Lymph # (Auto) Sutton # (Auto) Eos # (Auto) Baso # (Auto) Sodium Potassium Chloride Carbon Dioxide Anion Gap BUN Creatinine Estimated GFR/1.73 m2 BUN/Creatinine Ratio Glucose Calculated Osmolality Calcium Total Bilirubin AST ALT Alkaline Phosphatase Creatine Kinase Creatine Kinase Index CK-MB (CK-2) Troponin T < 0.010 Yzd-K-Ykollergatr Pept Total Protein Albumin Globulin Albumin/Globulin Ratio Plasma Lactate 1.8 Urine Source CLEAN CATCH Urine Color YELLOW Urine Turbidity CLEAR Urine pH 7.0 Ur Specific [place] 1.014 Urine Protein 50 A Ur Glucose (Stick) NEGATIVE Ur Ketones (Stick) NEGATIVE Urine Blood NEGATIVE Urine Nitrite NEGATIVE Urine Bilirubin NEGATIVE Urobilinogen Dipstick NORMAL Urine Leukocytes NEGATIVE Urine WBC (Auto) <10 Urine RBC (Auto) <10 U Epithel Cells (Auto) <10 Urine Bacteria (Auto) NEGATIVE Orders Category Date Time Status Saline Loc NOW Care 07/18/18 13:36 Active CHEST-2 VIEWS [RAD] Stat Exams 07/18/18 14:29 Completed BLOOD CULTURE [BLDCUL] Stat Lab 07/18/18 15:25 Results CBC WITH ELECTRONIC DIFF [HEME] Stat Lab 07/18/18 13:52 Completed CK PROFILE [SP CHEM] Stat Lab 07/18/18 13:52 Completed COMPREHENSIVE METABOLIC PANEL [CHEM] Stat Lab 07/18/18 13:52 Completed LACTATE, PLASMA [CHEM] Stat Lab 07/18/18 14:48 Completed PRO B-NATRIURETIC PEPTIDE Stat Lab 07/18/18 13:52 Completed TROPONIN T Stat Lab 07/18/18 13:52 Completed URINALYSIS W/POSS RFLX CULT [URINALYSIS] Stat Lab 07/18/18 13:52 Completed Acetaminophen [Tylenol] Med 07/18/18 15:11 Discontinued 1,000 mg PO NOW ONE Albuterol 2.5MG/Ipratrop 0.5MG [Duoneb (A & A)] Med 07/18/18 13:37 Discontinued 6 ml INH NOW ONE CefTRIAXONE [Rocephin] 1 gm Med 07/18/18 15:11 Discontinued 0.9% Sodium Chloride Inj [Ns] 50 ml IV NOW Methylprednisolone Sod Succ [Solu-Medrol] Med 07/18/18 13:37 Discontinued 125 mg IV NOW ONE Aerosol Treatments Routine Oth 07/18/18 13:37 Completed Aerosol Treatments Stat Oth 07/18/18 13:37 Completed EKG [EKG] Stat Ther 07/18/18 12:32 Ordered Discussed results and plan of care with patient. Patient agrees with plan and verbalizes understanding. Result Diagrams: 07/18/18 13:52 07/18/18 13:52 - EKG 1 Time of EKG reading by physician:: 12:33 EKG Read and Signed by:: Joann Pollard EKG Interpretation (*Must complete 3 of following elements*): Abnormal Rate: 106 Rhythm: Sinus tachycardia Center: normal QRS: normal - XRAY 1 XRAY Study: Chest ([facility] [address] , [address], [place] [address] Department of Imaging Patient: BEVERLY ROJAS Date: 0 07/18/18#: [id number] : 1960DM Status: [facility] ERAt#: [id number] Age/Sex: 57/FRoom/Bed: Loc: ED Ordering Physician: Jadyn Medina Family Physician: Ruma Quarles MD Reason for Procedure: SOB ___ Signed CHEST-2 VIEWS - 07/18/2018 INDICATION: SOB COMPARISON: 01/07/2018 FINDINGS: There is pulmonary vascular congestion. There are some trace ill-defined infiltrates in the lung bases. Heart size is top normal. No pneumothorax or pleural effusion. Stable calcified granulomas in the right upper lobe and mediastinum. IMPRESSION: Pulmonary vascular congestion. Tiny nonspecific infiltrates in the lung bases may represent pulmonary edema or pneumonia. Electronically signed by Brayan Sorenson 07/18/2018 2:53 PM 07/18/18 [id number] Interpreting Physician: Brayan Sorenson MD Dictated Date/Time: 07/18/18 1449 cc: Jadyn Medina; Ruma Quarles MD) XRAY Interpretation: See note - CONSULTS/PCP/HOSPITALIST Notification #1 *Consult/PCP/Hospitalist*: Aliya Newberry Time Discussed: 15:57 Reason/Comments: Admission Consult Disposition: Will see in ED, Admit Departure - Departure Date of Disposition Decision: 07/18/18 Time of Disposition Decision: 15:13 DIAGNOSIS: Pneumonia Qualifiers: Pneumonia type: due to unspecified organism Laterality: bilateral Lung location: lower lobe of lung Qualified Code(s): J18.1 - Lobar pneumonia, unspecified organism Disposition: ADMITTED INPATIENT 09 Certified Medical Emergency: Emergent Condition: Stable Referrals and Follow-Ups: Ruma Quarles MD [Primary Care Provider] - - Critical Care Note This patient required my direct & personal management of CC.: No Attestation - Physician/ LORENA Attestation Patient care was provided by Advanced Practice Provider:: Yes Advanced Practice Provider:: Jadyn Medina Advanced Practice Provider documentation review:: The Mid-level provider documentation, treatment plan and medical decision making was reviewed by the physician who agrees with all treatment and medical decision making by the P. The physician spent face to face time with patient:: No Advanced Practice Provider documentation review:: Supervising physician onsite and consulted in the evaluation and care of this patient. The physician did not have a face to face encounter with the patient. This chart was documented by the indicated scribe, (Elenita Clark Scribe) and accurately reflects the services I performed and decisions made by me, Jadyn Medina CRNP, as attested by the provider's signature.
[2018-07-18 14:46] LABS: AGAP 7; ALB/GLOB RATIO 1.3; ALBUMIN 3.7 g/dL (3.5-5.0); ALKALINE PHOSPHATASE 105 U/L (32-104); BUN 15 mg/dL (8-22); CALCIUM 8.6 mg/dL (8.8-10.2); CHLORIDE 94 mmol/L (98-107); COSMO 276; CREATININE 0.9 mg/dL (0.5-0.9); ESTIMATED GFR > 60; GLUCOSE 221 mg/dL (70-104); GOT 21 U/L (10-30); GPT 18 U/L (10-36); POTASSIUM 4.5 mmol/L (3.5-5.1); SODIUM 134 mmol/L (136-145); TCO2 33 mmol/L (25-35); TOTAL BILIRUBIN 0.36 mg/dL (0.20-1.00); TOTAL PROTEIN 6.5 g/dL (6.3-8.3)
[2018-07-18 14:49] LABS: CK PROFILE 191 U/L (24-173)
--- NOTE | 2018-07-18 14:56 | Diag Imaging Result Doc PS360 ---
CHEST-2 VIEWS - 07/18/2018 INDICATION: SOB COMPARISON: 01/07/2018 FINDINGS: There is pulmonary vascular congestion. There are some trace ill-defined infiltrates in the lung bases. Heart size is top normal. No pneumothorax or pleural effusion. Stable calcified granulomas in the right upper lobe and mediastinum. IMPRESSION: Pulmonary vascular congestion. Tiny nonspecific infiltrates in the lung bases may represent pulmonary edema or pneumonia. Electronically signed by Brayan Sorenson 07/18/2018 2:53 PM
[2018-07-18] MEDS ORDERED: TYLENOL PO ONE (15:11)
[2018-07-18] MEDS ORDERED: ROCEPHIN 1 GM in NS 50 ML IV ONE (15:11)
[2018-07-18 15:16] LABS: CK INDEX 2.6 (0.0-2.5); CK-MB 4.94 ng/mL (0.0-5.0)
[2018-07-18] MEDS ORDERED: TYLENOL PO PRN (16:07)
[2018-07-18] MEDS ORDERED: ZOFRAN IV PRN (16:07)
[2018-07-18] MEDS: ATROVENT NEB INH SCH ×2 (17:01→21:30)
[2018-07-18] MEDS: XOPENEX NEB INH SCH ×2 (17:01→21:30)
[2018-07-18 17:04] LABS: ALLEN TEST YES; BE 5.8 mmoll (-3.0-3.0); BLOOD TYPE ARTERIAL; HCO3-(ACT) 29.4 mmoll (20.0-26.0); METHB 0.3 % (0.0-1.5); O2(CT) 16.9 mL/dL (15.0-23.0); O2HB 96.3 % (95.0-99.0); PCO2(98.6) 44 mmHg (35-45); PO2(98.6) 92 mmHg (60-100); SAMPLE BLOOD; SAO2 97.6 % (95.0-100.0); THB 12.4 g/dL (11.5-17.4); pH(98.6) 7.45 (7.35-7.45)
[2018-07-18 17:05] LABS: MODALITY CANNULA
--- NOTE | 2018-07-18 18:10 | HISTORY AND PHYSICAL ---
PRIMARY CARE PROVIDER: REESE Mcadams. CHIEF COMPLAINT: Fever, productive cough, shortness of breath, increased need of oxygen. HISTORY OF PRESENT ILLNESS: Ms. Anat Jauregui is a 57-year-old female with a medical history of COPD who started having to wear nocturnal 3 L of oxygen in 2017. Also with history of pulmonary emboli and DVT (on Eliquis), diabetes mellitus type 2, GERD and chronic chest pain. Is now presenting with 1-1/2 weeks of subjective fever, yellow-green productive phlegm, and starting this morning required oxygen 3 L that she normally only wears at night. She went to work with increasing shortness of breath and decided to come to the ER here. Her white blood cell count is 21,000. Lactate is negative, and a chest x-ray reveals that she has pulmonary vascular congestion and tiny nonspecific infiltrates in the lung bases which may represent pulmonary emboli or pneumonia, but given the symptoms that she describes, it is likely pneumonia. She does not have a history of CHF, and her proBNP is not significantly elevated. It is only 597. We will admit and treat her for a COPD exacerbation requiring more oxygen and for bibasilar pneumonia. PAST MEDICAL HISTORY: 1. Pulmonary emboli with left leg DVT, on Eliquis 5 mg twice a day. 2. COPD. Nocturnal oxygen 3 L nasal cannula since 2017. 3. Diabetes mellitus type 2. 4. Hypertension. 5. GERD. 6. Hyperlipidemia. 7. Insomnia. 8. Chronic chest pain. PAST SURGICAL HISTORY: 1. Cholecystectomy. 2. section. 3. Left foot tumor removed that was benign. SOCIAL HISTORY: Quit smoking on 03/28/2007, but prior to that she was a jbkv-sali-kol-day smoker for 35 years. Denies alcohol or illicit drug use. Lives at home with her and 17-year-old daughter. Currently works at [employer]. FAMILY HISTORY: Father had heart murmur. from an intestinal blockage. He also had diabetes. Mother from pneumonia. ALLERGIES: Levaquin causes anaphylaxis. HOME MEDICATIONS: 1. Ambien 5 mg p.o. nightly. 2. Amlodipine besylate 2.5 mg p.o. nightly. 3. Paxil 10 mg p.o. nightly. 4. Singulair 10 mg p.o. nightly. 5. Zinc 50 mg p.o. nightly. 6. Albuterol nebulizations inhaled 4 times daily. 7. Bentyl 10 mg p.o. t.i.d. 8. Black cohosh 540 mg p.o. nightly. 9. Calcium with vitamin D 600 mg p.o. twice daily. 10.Eliquis 5 mg p.o. twice daily. 11.Neurontin 600 mg p.o. twice daily. 12.Glucophage 500 mg p.o. twice daily. 13.Magnesium 250 mg p.o. twice daily. 14.Prilosec 40 mg p.o. daily. 15.Lipitor 10 mg p.o. nightly. 16.Ultram 50 mg p.o. t.i.d. p.r.n. REVIEW OF SYSTEMS: A 14-point review of systems is completed, and all are negative except for those mentioned above in the HPI. PHYSICAL EXAMINATION: VITAL SIGNS: Temperature 99.3, heart rate 101, respiratory rate 20, blood pressure 143/77, O2 saturation 95% on 3 L nasal cannula. Height 5 feet 0 inches, weight 162 pounds with a BMI of 31.6. GENERAL: Ms. Anat Jauregui is a 57-year-old female. She is in no acute distress. Is able to answer questions appropriately. HEENT: Atraumatic, normocephalic. Pupils equal, round, and reactive to light. Extraocular movements intact. Mucous membranes are moist. NECK: Trachea midline. CARDIOVASCULAR: S1 and S2. Tachycardic rate and rhythm. No rubs, gallops or murmurs. No lower extremity edema and +2 dorsalis and radial pulses. Negative for JVD or carotid bruits. PULMONARY: Inspiratory and expiratory wheezes anteriorly and posteriorly in all madden. Mild work of breathing. No accessory muscle use. Tolerating 3 L nasal cannula. GI: Soft, nontender, nondistended. Positive bowel sounds x4. EXTREMITIES: Moves all extremities equally. Full range of motion. NEUROLOGIC: A O x3. Follows commands. Sensory is intact. SKIN: Warm, dry and intact. LABORATORY DATA: White blood cells 21,000, hemoglobin 12, hematocrit 38, platelet count 447. ABG on 3 liters nasal cannula: pH of 7.45, pCO2 of 44, pO2 of 92, bicarb of 29.4, base excess 5.8, saturation 97%, lactate 1.3. Sodium 134, potassium 4.5, BUN 15, creatinine 0.9, glucose 221. Calcium 8.6, bilirubin 0.36. AST 21, ALT 18. CK 191, troponin less than 0.01, proBNP 597. Albumin 3.7, serum lactate 1.8. Urinalysis 50 protein. IMAGING: Chest x-ray: Pulmonary vascular congestion, tiny nonspecific infiltrates in the lung bases which may represent pulmonary edema and/or pneumonia. ASSESSMENT/PLAN: 1. Bibasilar pneumonia. Has been started on Rocephin. Will continue with that. Will try and get a sputum culture. 2. Chronic obstructive pulmonary disease with hypoxemia. She uses 3 L of nocturnal oxygen and today required continuous oxygen due to being so short of breath. Her arterial blood gases are stable. Will continue with IV steroids and nebulizers. 3. History of pulmonary emboli and deep venous thrombosis of the left leg. Continue Eliquis 5 mg twice a day. 4. Diabetes mellitus type 2. Pattern blood glucoses, sliding-scale insulin, and will check a hemoglobin A1c in the morning. 5. Hypertension. Continue home medications. 6. Gastroesophageal reflux disease. Continue with proton pump inhibitor. 7. Hyperlipidemia. Continue statin. 8. Chronic chest pain. She does have an elevation in her CKs but denies chest pain at this time, and we will get an electrocardiogram, as there was not one performed in the emergency room. 9. Deep venous thrombosis prophylaxis: Lovenox. Dictated by REESE Fung for Gabino Newberry MD cc: REESE Fung MD
[2018-07-18] MEDS: PULMICORT INH SCH (19:30)
--- NOTE | 2018-07-18 21:10 | HISTORY AND PHYSICAL ---
ADDENDUM: Patient seen and examined by myself full note dictated and discussed with nurse practitioner. Patient notes that she has been having cough, congestion shortness of breath for the past several days however it has continued to worsen. States today she got up attempting to go to work but started coughing was so congested that she was unable to do so. Therefore she came to the hospital. Will admit patient the hospital, place her on oxygen, antibiotics, steroids and breathing treatments. Will continue to follow, will recheck labs in a.m. and adjust medicines as needed. cc: Gabino Newberry MD
[2018-07-18] MEDS: AMBIEN PO SCH (21:35)
[2018-07-18] MEDS: SINGULAIR PO SCH (21:35)
[2018-07-18] MEDS: SOLU-MEDROL IV SCH (21:35)
[2018-07-18] MEDS: CALTRATE 600 + D PO SCH (21:35)
[2018-07-18] MEDS: ZINC SULFATE PO SCH (21:36)
[2018-07-18] MEDS: ELIQUIS PO SCH (21:36)
[2018-07-18] MEDS: NEURONTIN PO SCH (21:36)
[2018-07-18] MEDS: MAG-OX PO SCH (21:36)
[2018-07-18] MEDS: NORVASC PO SCH (21:36)
[2018-07-18] MEDS: PAXIL PO SCH (21:36)
[2018-07-18] MEDS: LIPITOR PO SCH (21:37)
[2018-07-19] MEDS: XOPENEX NEB INH SCH ×4 (03:11→19:00)
[2018-07-19] MEDS: ATROVENT NEB INH SCH ×4 (04:00→22:01)
[2018-07-19 06:00] LABS: BASO# 0.01 X1000 (0.0-0.2); BASO% 0.1 % (0.0-0.8); EOS# 0.02 X1000 (0.0-0.7); EOS% 0.1 % (0.0-10.0); HEMATOCRIT 37.2 % (37.0-47.0); HEMOGLOBIN 11.3 g/dL (12.0-16.0); IMM GRAN# 0.04 X1000 (0.0-0.04); IMM GRAN% 0.3 % (0.0-0.5); LYMPH# 1.62 X1000 (1.2-3.4); LYMPH% 10.2 % (20.5-51.1); MCH 26.6 PG (27-31); MCHC 30.4 g/dL (33-37); MCV 87.5 FL (81-99); MONO# 1.02 X1000 (0.11-0.59); MONO% 6.4 % (1.7-9.3); MPV 8.9 FL (7.4-10.4); NEUT# 13.18 X1000 (1.4-6.5); NEUT% 82.9 % (42.2-75.2); PLT 447 X1000 (130-400); RBC 4.25 XMIL (4.2-5.4); RDW 13.8 % (11.5-14.5); WBC 15.89 X1000 (4.8-10.8)
[2018-07-19] MEDS: SOLU-MEDROL IV SCH ×3 (06:21→22:24)
[2018-07-19] MEDS: BENTYL PO SCH ×3 (06:22→17:30)
[2018-07-19] MEDS: PRILOSEC PO SCH (06:22)
[2018-07-19 06:36] LABS: AGAP 10; ALB/GLOB RATIO 0.9; ALBUMIN 3.2 g/dL (3.5-5.0); ALKALINE PHOSPHATASE 98 U/L (32-104); BUN 19 mg/dL (8-22); CALCIUM 8.7 mg/dL (8.8-10.2); CHLORIDE 103 mmol/L (98-107); COSMO 297; CREATININE 0.8 mg/dL (0.5-0.9); ESTIMATED GFR > 60; GLUCOSE 299 mg/dL (70-104); GOT 16 U/L (10-30); GPT 17 U/L (10-36); POTASSIUM 4.7 mmol/L (3.5-5.1); SODIUM 142 mmol/L (136-145); TCO2 29 mmol/L (25-35); TOTAL BILIRUBIN 0.25 mg/dL (0.20-1.00); TOTAL PROTEIN 6.6 g/dL (6.3-8.3)
--- NOTE | 2018-07-19 08:11 | Diag Imaging Result Doc PS360 ---
CHEST-2 VIEWS - 07/19/2018 INDICATION: pna/copd COMPARISON: 07/18/2018 FINDINGS: There has been improvement in the ill-defined infiltrate in the right lung base. Stable nonspecific infiltrate or atelectasis in the left lung base. Heart size remains normal. No large pleural effusion. IMPRESSION: Improvement in the right basilar infiltrate. Electronically signed by Brayan Sorenson 07/19/2018 8:09 AM
[2018-07-19] MEDS: PULMICORT INH SCH ×2 (09:35→19:00)
[2018-07-19] MEDS: ROCEPHIN 1 GM in NS 50 ML IV SCH (09:59)
[2018-07-19] MEDS: NEURONTIN PO SCH ×2 (10:03→22:23)
[2018-07-19] MEDS: CALTRATE 600 + D PO SCH ×2 (10:03→22:24)
[2018-07-19] MEDS: ELIQUIS PO SCH ×2 (10:03→22:24)
[2018-07-19] MEDS: GLUCOPHAGE PO SCH ×2 (10:03→17:34)
[2018-07-19] MEDS: MAG-OX PO SCH ×2 (10:03→22:23)
[2018-07-19] MEDS ORDERED: VANCOMYCIN IV PER PHARMACY MISC SCH (10:45)
[2018-07-19] MEDS ORDERED: VANCOMYCIN 1,650 MG in NS 250 ML IV ONE (11:00)
--- NOTE | 2018-07-19 13:33 | PROGRESS NOTE ---
DATE: 07/19/2018 SUBJECTIVE: Ms. Jauregui was admitted. She is a patient of Dr. Quarles and followed by REESE Matthews. She presented with fever, productive cough, shortness of breath, increased need for oxygen. This is a 57-year-old female with past medical history of COPD. Started having to wear nocturnal oxygen to 3 L in 2017. Has a history of pulmonary emboli and DVT. She is on Eliquis. Diabetes mellitus type 2, gastroesophageal reflux disease, and chronic chest pain, who presented with 1-1/2 week history of subjective fever, yellow-green productive phlegm started in the morning, requiring oxygen 3 L, normally wears it at night. She went to work with increasing shortness of breath. Decided to come to the emergency room. Her white blood cell count was 21,000. Lactate was negative. Chest x-ray revealed pulmonary vascular congestion and tiny nonspecific infiltrates in lung bases which may represent pulmonary emboli or pneumonia. She was admitted to the hospital. She reports that today she is breathing a little better. She does complain about the food. She would like something for cough, so I will try to give her some Tessalon Perles. OBJECTIVE: Vital Signs: Temperature 98 degrees, pulse 102, respirations 20, blood pressure 122/61. HEENT: Pupils are equal and round. Lungs: Clear in all lung madden. Cardiovascular: Regular rhythm and rate without murmur or S3. Abdomen: Soft. Skin: Warm and dry. DIAGNOSTIC DATA: Urine output 1200 mL. Chest x-ray: Improvement in the right basilar infiltrate. ASSESSMENT AND PLAN: 1. Bibasilar pneumonia. Continue Rocephin and bronchodilators. 2. Chronic obstructive pulmonary disease with hypoxemia. She is on home nocturnal O2 at 3 L since 2017 and has required continuous oxygen since she has been in the hospital because she is short of breath. 3. Bronchospasm, wheezing. Continue her bronchodilators. Make sure she is on a steroid inhaler and consider Solu-Medrol as well. 4. History of pulmonary emboli, deep venous thrombosis in the left leg. She is on Eliquis 5 mg twice a day already. 5. Diabetes mellitus type 2. Will follow sugars. 6. Hypertension. 7. Gastroesophageal reflux. 8. Hyperlipidemia. 9. Chronic chest pain. She has denied chest pain on this admission. EKG unchanged. REVIEW OF HER ORDERS: She getting Norvasc 2.5 mg at bedtime, Singulair 10 mg a day, Paxil 10 mg at bedtime, zinc sulfate 220 mg at bedtime, Ambien 5 mg at bedtime, Eliquis 5 mg twice a day, Lipitor 10 mg at bedtime, Pulmicort 0.5 mg b.i.d., calcium carbonate 1 b.i.d., Bentyl 10 mg p.o. t.i.d., Neurontin 600 mg b.i.d., ipratropium bromide inhaler 1 puff I think q.6 h., Xopenex 1.25 mg inhalation q.6 h., magnesium oxide 400 mg b.i.d., Glucophage 500 mg b.i.d., methylprednisone 60 mg q.8 h., and ceftriaxone 1 g q.24 h. She is getting vancomycin 1500 mg q.36 h. right now. I will add some Tessalon Perles as needed. cc: Adam Diehl MD
[2018-07-19] MEDS: HUMULIN R SUBQ SCH ×3 (13:48→18:58)
[2018-07-19] MEDS: TESSALON PO PRN (17:34)
[2018-07-19] MEDS: AMBIEN PO SCH (22:23)
[2018-07-19] MEDS: ZINC SULFATE PO SCH (22:23)
[2018-07-19] MEDS: PAXIL PO SCH (22:23)
[2018-07-19] MEDS: NORVASC PO SCH (22:24)
[2018-07-19] MEDS: LIPITOR PO SCH (22:24)
[2018-07-19] MEDS: SINGULAIR PO SCH (22:24)
[2018-07-20] MEDS: HUMULIN R SUBQ SCH ×6 (00:41→22:31)
[2018-07-20] MEDS: TESSALON PO PRN ×2 (00:43→22:30)
[2018-07-20] MEDS: ATROVENT NEB INH SCH ×4 (03:28→22:35)
[2018-07-20] MEDS: XOPENEX NEB INH SCH ×4 (03:28→22:35)
[2018-07-20] MEDS: SOLU-MEDROL IV SCH ×4 (05:54→22:27)
[2018-07-20] MEDS: BENTYL PO SCH ×4 (05:54→16:22)
[2018-07-20] MEDS: PRILOSEC PO SCH ×2 (05:55→06:09)
--- NOTE | 2018-07-20 07:04 | EKG Report ---
Test Performed on : 07/18/2018 12:31:39 PM Test Reason : SOB Blood Pressure : / mmHG Vent. Rate : 106 BPM Atrial Rate : 106 BPM P-R Int : 122 ms QRS Dur : 088 ms QT Int : 322 ms P-R-T Axes : 059 060 059 degrees QTc Int : 427 ms Sinus tachycardia. Otherwise normal ECG When compared with ECG of 11-MAY-2017 23:23, Left bundle branch block is no longer present Unconfirmed Result
[2018-07-20] MEDS: CALTRATE 600 + D PO SCH ×2 (08:58→22:26)
[2018-07-20] MEDS: ELIQUIS PO SCH ×2 (08:58→22:25)
[2018-07-20] MEDS: MAG-OX PO SCH ×2 (08:59→22:26)
[2018-07-20] MEDS: NEURONTIN PO SCH ×2 (08:59→22:26)
[2018-07-20] MEDS: ROCEPHIN 1 GM in NS 50 ML IV SCH (08:59)
[2018-07-20] MEDS: GLUCOPHAGE PO SCH ×2 (08:59→16:22)
[2018-07-20] MEDS: PULMICORT INH SCH ×2 (09:20→22:30)
--- NOTE | 2018-07-20 16:55 | PROGRESS NOTE ---
DATE: 07/20/2018 SUBJECTIVE: Ms. Jauregui is breathing better and feeling better. She thinks she would like to go home, but we need to make sure she gets her oxygen at home. Her wheezing is diminished and breathing comfortably. OBJECTIVE: Temperature 97.7 degrees, pulse 109, respirations 19, and blood pressure 136/73. Pupils are equal and round. Lungs are clear in all lung madden with end expiratory wheezing on occasion. Cardiovascular exam with regular rhythm and rate without murmur or S3. Abdomen is soft. Skin is warm and dry. Urine output is 2600 mL. Blood sugar 350, 300, and 335. Her chest x-ray from yesterday improvement in the right basilar infiltrate. ASSESSMENT AND PLAN: 1. Bibasilar pneumonia on Rocephin and bronchodilators doing much better. 2. Chronic obstructive pulmonary disease with hypoxemia. She needs home O2. She was on home O2 at 3 L, but had run out of her oxygen. She has been on this since 2017 so we need to make sure we get oxygen at home. 3. Bronchospasm and wheezing which is much better. I will decrease the steroids. 4. 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 She is on Eliquis 5 mg twice a day. 5. Diabetes mellitus type 2. 6. Hypertension. 7. Gastroesophageal reflux. 8. Hyperlipidemia. 9. Chronic chest pain which she has not had much of while she has been in the hospital, so we will make sure she is eligible for her oxygen. I am going to decrease her Solu-Medrol down to 20 mg twice a day, and see if we can maybe go home tomorrow. cc: Adam Diehl MD
[2018-07-20] MEDS: ZINC SULFATE PO SCH (22:25)
[2018-07-20] MEDS: LIPITOR PO SCH (22:26)
[2018-07-20] MEDS: AMBIEN PO SCH (22:26)
[2018-07-20] MEDS: SINGULAIR PO SCH (22:26)
[2018-07-20] MEDS: NORVASC PO SCH (22:26)
[2018-07-20] MEDS: PAXIL PO SCH (22:27)
[2018-07-20] MEDS: ULTRAM PO PRN (22:29)
[2018-07-20] MEDS ORDERED: VANCOMYCIN 1,500 MG in NS 250 ML IV SCH (23:00)
[2018-07-21] MEDS: ATROVENT NEB INH SCH ×4 (03:59→22:45)
[2018-07-21] MEDS: XOPENEX NEB INH SCH ×4 (03:59→22:45)
[2018-07-21] MEDS: BENTYL PO SCH ×3 (06:49→16:43)
[2018-07-21] MEDS: HUMULIN R SUBQ SCH ×4 (06:49→21:22)
[2018-07-21] MEDS: PRILOSEC PO SCH (06:49)
[2018-07-21] MEDS: SOLU-MEDROL IV SCH (06:49)
[2018-07-21] MEDS: ROCEPHIN 1 GM in NS 50 ML IV SCH (08:52)
[2018-07-21] MEDS: CALTRATE 600 + D PO SCH ×2 (08:54→21:21)
[2018-07-21] MEDS: ELIQUIS PO SCH ×2 (08:54→21:20)
[2018-07-21] MEDS: GLUCOPHAGE PO SCH ×2 (08:54→16:43)
[2018-07-21] MEDS: MAG-OX PO SCH ×2 (08:54→21:21)
[2018-07-21] MEDS: NEURONTIN PO SCH ×2 (08:54→21:21)
[2018-07-21] MEDS: PULMICORT INH SCH ×2 (10:41→22:25)
[2018-07-21] MEDS ORDERED: SOLU-MEDROL ONE (14:19)
--- NOTE | 2018-07-21 14:35 | INFECTIOUS DISEASE CONSULT REP ---
DATE: 07/21/2018 CONCLUSION: Patient has an oxacillin-sensitive Staphylococcus aureus pneumonia at with an associated oxacillin-sensitive Staphylococcus aureus bacteremia. The patient may have an underlying immunoglobulin deficiency. RECOMMENDATIONS: I have discontinued Rocephin and vancomycin and put the patient on Ancef 2 g IV every 8 hours. I plan to treat the patient for at least 2 weeks with day 1 being the first day that the repeat blood cultures are sterile. DISCUSSION: The patient tells me that in the past week she has been very dyspneic. She is coughing. She does not know if she had fever or not. She did not bring up any sputum. DIAGNOSTIC STUDIES: The patient's lab and radiographic studies show the following. Her CBC shows a white count of 15,890, hemoglobin 11.3, and platelet count 447,000. Creatinine is 0.8, GFR is greater than 60. Liver function studies are normal. Urinalysis has no white cells or bacteria. Chest x-ray shows bibasilar infiltrates. Blood cultures are growing an oxacillin-sensitive Staphylococcus aureus. PAST MEDICAL HISTORY/REVIEW OF SYSTEMS: Eyes and ears: Her hearing is good. She says she wears glasses for reading. Respiratory: See Present Illness. Cardiac: No chest pain or palpitations. Gastrointestinal: No nausea/vomiting or diarrhea. Genitourinary: No dysuria or flank pain. Endocrine: Patient has diabetes, but she does not have thyroid disease. Bones, joints, muscles: No swollen joints or muscle aching. Integument: No rashes. Neurologic: No seizures. No recent loss of motor or sensory function. OBSTETRICAL/GYNECOLOGICAL HISTORY: She is a 3 para 3 AB 0. She delivered one of her children by . 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 MEDICAL DISEASES: Positive for diabetes mellitus, hypertension, COPD, gastroesophageal reflux disease, asthma, hyperlipidemia. The patient was a smoker, but she has discontinued smoking cigarettes. INFECTIOUS DISEASE HISTORY: Positive for pneumonia. Negative for UTI. FAMILY HISTORY: Positive for diabetes mellitus, myocardial infarction, stroke, and cancer. SOCIAL HISTORY: The patient lives in [place]. She is . She has a dog as a pet. ALLERGIES: She is allergic to Levaquin. HOME MEDICATIONS: Include the following: Albuterol inhaler, amlodipine, Eliquis, Lipitor, Bentyl, gabapentin, metformin, Singulair, omeprazole, paroxetine, tramadol, and Ambien. PHYSICAL EXAMINATION: Vital Signs: Temperature is 98.2 degrees, pulse 83, respirations 24, blood pressure 133/68. Height/weight: The patient is 5 feet tall, weighs 162 pounds. General: This is a ill-appearing middle-aged female. She is in no acute distress. Head, eyes, ears, nose, and throat: She can hear my spoken words and see near objects. She does not have any white patches on her tongue. Neck: No meningismus. Lungs: There were some expiratory wheezes and some basilar rales. Cardiovascular: Heart rate is regular. I did not hear a murmur. Abdomen: Soft and nontender. Neurologic: Patient is alert. She can move her extremities. There is no tremor. Her sensation is intact to touch. Her memory as regarding her medical history is intact. Integument: No rash noted. Thank you for the consult. cc: Ramos Ruvalcaba MD
--- NOTE | 2018-07-21 14:37 | PROGRESS NOTE ---
DATE: 07/21/2018 INTERVAL HISTORY: The patient's dyspnea remains largely resolved. O2 requirements stable and consistent with what she is on at home. No new complaints, but the patient's admission blood culture is now positive for MSSA. No fevers or chills. No night sweats or diaphoresis. REVIEW OF SYSTEMS: Twelve point review of systems negative except per interval history. LABORATORY: Glucose 173 to 335. Blood cultures from 07/18 are 1 of 2 positive for MSSA, resistant only to Pen-G. VITAL SIGNS: T-max 98.7 degrees, pulse 93, respirations 24, blood pressure 133/68, O2 saturation 99% on 2 L by nasal cannula. PHYSICAL EXAMINATION: General: No acute distress. Vitals as above. HEENT: Normocephalic, atraumatic. Moist mucous membranes. No cervical adenopathy. Cardiovascular: Regular rate and rhythm. No murmurs, rubs or gallops. Pulmonary: Mildly decreased breath sounds throughout. A few scattered rhonchi, but largely clear to auscultation. Abdomen: Soft. Nontender. Nondistended. Bowel sounds positive. Extremities: Peripheral pulses intact. No clubbing, cyanosis or edema. Neurologic: Cranial nerves grossly intact. No focal deficits identified. Psychiatric: Normal mood and affect. Awake, alert, and oriented x3. Skin: No new rashes or lesions identified. ASSESSMENT AND PLAN: 1. Bibasilar pneumonia. The patient is on Cephazolin and much improved symptomatically. Still some slight dyspnea with exertion, but approaching baseline. O2 requirements and at baseline. Patient with chronic hypoxic respiratory failure on 3 L of oxygen at home. This will need to be reset up as she had run out. 2. COPD and chronic hypoxic respiratory failure, stable. We will need to reassess oxygen for home O2 as above. 3. MSSA bacteremia. The patient symptomatically much improved, but now initial blood cultures becoming positive for MSSA. Three days out only 1 of 2, so may be contaminant, but can't entirely ignore it as it is MSSA. Repeating blood cultures and asking for Infectious Disease input. 4. Diabetes mellitus controlled, not ideal on current sliding scale insulin. Likely secondary to steroids. We will wean steroids, but leave insulin the same for now. 5. Hypertension. Reasonable control on current regimen. Continue to monitor. 6. Gastroesophageal reflux disease. Continue PPI. 7. Hyperlipidemia. Continue Atorvastatin. 8. Chronic pain. Continue home medications. 9. History of PE and DVT. Remains on Eliquis. 10. Deep vein thrombosis prophylaxis. Eliquis. [facility]
[2018-07-21] MEDS: KEFZOL 2 GM/D5W 2 GM/50 ML IVPB IV SCH ×2 (15:18→21:22)
[2018-07-21] MEDS: NORVASC PO SCH (21:20)
[2018-07-21] MEDS: LIPITOR PO SCH (21:20)
[2018-07-21] MEDS: SINGULAIR PO SCH (21:20)
[2018-07-21] MEDS: ZINC SULFATE PO SCH (21:21)
[2018-07-21] MEDS: TESSALON PO PRN (21:21)
[2018-07-21] MEDS: ULTRAM PO PRN (21:21)
[2018-07-21] MEDS: AMBIEN PO SCH (21:21)
[2018-07-21] MEDS: PAXIL PO SCH (21:21)
[2018-07-22] MEDS: XOPENEX NEB INH SCH ×4 (03:30→21:27)
[2018-07-22] MEDS: ATROVENT NEB INH SCH ×4 (03:30→21:27)
[2018-07-22] MEDS: ULTRAM PO PRN ×2 (05:05→22:09)
[2018-07-22] MEDS: KEFZOL 2 GM/D5W 2 GM/50 ML IVPB IV SCH ×3 (05:05→20:42)
[2018-07-22] MEDS: TESSALON PO PRN (05:05)
[2018-07-22] MEDS: BENTYL PO SCH ×3 (06:02→16:40)
[2018-07-22] MEDS: PRILOSEC PO SCH (06:02)
[2018-07-22 06:37] LABS: BASO# 0.03 X1000 (0.0-0.2); BASO% 0.2 % (0.0-0.8); EOS# 0.01 X1000 (0.0-0.7); EOS% 0.1 % (0.0-10.0); HEMATOCRIT 41.1 % (37.0-47.0); HEMOGLOBIN 12.6 g/dL (12.0-16.0); IMM GRAN# 0.27 X1000 (0.0-0.04); IMM GRAN% 1.6 % (0.0-0.5); LYMPH# 3.57 X1000 (1.2-3.4); LYMPH% 20.5 % (20.5-51.1); MCH 26.9 PG (27-31); MCHC 30.7 g/dL (33-37); MCV 87.8 FL (81-99); MONO# 1.74 X1000 (0.11-0.59); MPV 8.6 FL (7.4-10.4); NEUT# 11.78 X1000 (1.4-6.5); NEUT% 67.6 % (42.2-75.2); PLT 602 X1000 (130-400); RBC 4.68 XMIL (4.2-5.4); RDW 13.8 % (11.5-14.5)
[2018-07-22] MEDS: HUMULIN R SUBQ SCH ×2 (06:53→12:06)
[2018-07-22 07:12] LABS: CALCIUM 8.6 mg/dL (8.8-10.2); POTASSIUM 4.6 mmol/L (3.5-5.1)
[2018-07-22] MEDS: PREDNISONE PO SCH (08:14)
[2018-07-22] MEDS: ELIQUIS PO SCH ×2 (08:14→20:41)
[2018-07-22] MEDS: CALTRATE 600 + D PO SCH ×2 (08:14→20:40)
[2018-07-22] MEDS: MAG-OX PO SCH ×2 (08:14→20:41)
[2018-07-22] MEDS: GLUCOPHAGE PO SCH ×2 (08:14→16:40)
[2018-07-22] MEDS: NEURONTIN PO SCH ×2 (08:14→20:41)
[2018-07-22] MEDS: PULMICORT INH SCH ×2 (10:49→21:27)
--- NOTE | 2018-07-22 14:27 | PROGRESS NOTE ---
DATE: 07/22/2018 INTERVAL HISTORY: The patient's dyspnea remains significantly improved. O2 requirements remain stable. No new complaints. No acute events overnight. Remains afebrile. REVIEW OF SYSTEMS: Twelve point review of systems negative except as per interval history. LABS: WBCs 17.4, hemoglobin 12.6, hematocrit 41.1, platelets 602,000. Initial blood cultures positive for MSSA. Repeat blood cultures, no growth to date. VITAL SIGNS: T-max 98.7 degrees, pulse 88, respirations 18, blood pressure 135/74, O2 saturation 92% on room air. PHYSICAL EXAMINATION: General: No acute distress. Vitals: As above. HEENT: Normocephalic, atraumatic. Moist mucous membranes. No cervical adenopathy. Cardiovascular: Regular rate and rhythm. No murmurs, rubs, or gallops. Pulmonary: Slightly decreased breath sounds throughout but otherwise largely clear to auscultation bilaterally. Abdomen: Soft, nontender, nondistended. Bowel sounds positive. Extremities: Peripheral pulses intact. No clubbing, cyanosis, or edema. Neurologic: Cranial nerves grossly intact. No focal deficits identified. Psychiatric: Normal mood and affect. Awake, alert, and oriented x3. Skin: No new rashes or lesions identified. ASSESSMENT AND PLAN: 1. Bibasilar pneumonia. Patient is on cefazolin. Respiratory symptoms markedly improved. Patient near baseline at this point. On 3 L of oxygen at home. 2. Methicillin-sensitive Staphylococcus aureus bacteremia, likely related to pneumonia as above. Initial blood cultures positive for methicillin-sensitive Staphylococcus aureus. Repeat cultures drawn on 07/21/2018 negative so far. If blood cultures remain negative, then hopefully we can get a peripherally inserted central catheter line tomorrow and set her up with home intravenous antibiotics. Infectious disease consulted and following. On cefazolin as above. 3. Chronic obstructive pulmonary disease and chronic hypoxic respiratory failure, stable. Will need reassessment for home oxygen as above as she has been on 3 L in the past but states that she has run out. 4. Diabetes mellitus. Significant elevations in blood sugar yesterday, somewhat improved today but control remains not ideal. We will increase sliding scale insulin and monitor. 5. Hypertension. Reasonable control on current regimen. Continue to monitor. 6. Gastroesophageal reflux disease. Continue proton pump inhibitor. 7. Hyperlipidemia. Continue atorvastatin. 8. Chronic pain. Pain well controlled. Continue home medications. 9. History of pulmonary embolism and deep venous thrombosis. Continue Eliquis. 10. Deep vein thrombosis prophylaxis. [employer].
[2018-07-22] MEDS: HUMALOG SUBQ SCH ×2 (16:40→20:47)
--- NOTE | 2018-07-22 18:05 | INFECTIOUS DISEASE PROGRESS NO ---
DATE: 07/22/2018 PRESENT ILLNESS: The patient has an oxacillin-sensitive Staphylococcus aureus pneumonia with an associated oxacillin-sensitive Staphylococcus aureus bacteremia. I thought the patient could have an underlying immunoglobulin deficiency, but measurements of her immunoglobulin, specifically IgG and IgA, are in the normal range, and thus, the patient does not need immunoglobulin therapy. MEDICATIONS: The patient is receiving Ancef 2 grams IV every 8 hours. PHYSICAL EXAMINATION: Vital Signs: Temperature is 98.7 degrees, pulse 88, respirations 18, blood pressure is 135/74. General: This is a somewhat ill-appearing middle-aged female. She is still having some wheezing. Head, Eyes, Ears, Nose, and Throat: She can hear my spoken words and see near objects. She does not have any white patches on her tongue. Extremities: She has leg edema, but no erythema. Lungs: Expiratory wheezes were heard bilaterally. Cardiovascular: Heart rate is regular. Abdomen: Soft and nontender. Neurologic: The patient is alert. She can ambulate. There is no tremor. Her sensation is intact to touch. LAB AND RADIOLOGY: The patient's CBC shows a white count of 17,400, hemoglobin 12.6, and platelet count 602,000. Creatinine is 1, GFR is 57. IgG and IgA are normal. Repeat blood cultures are pending. ASSESSMENT AND PLAN: The patient has Staphylococcus aureus pneumonia and bacteremia. My plan is to continue Ancef. Tomorrow I am going to get a chest x-ray, and if it looks the same or better, and if the repeat blood cultures are sterile, then I think the patient could be discharged home or 1 day later she could be discharged. I will have a PICC placed in the person, and I will put in a consult to see if we can get the patient set up with home IV antibiotics. COMORBIDITIES: Diabetes mellitus, chronic obstructive pulmonary disease, gastroesophageal reflux disease, and asthma. The patient has been a cigarette smoker, but she has discontinued. cc: Ramos Ruvalcaba MD
[2018-07-22] MEDS: AMBIEN PO SCH (20:40)
[2018-07-22] MEDS: ZINC SULFATE PO SCH (20:41)
[2018-07-22] MEDS: SINGULAIR PO SCH (20:41)
[2018-07-22] MEDS: NORVASC PO SCH (20:41)
[2018-07-22] MEDS: PAXIL PO SCH (20:41)
[2018-07-22] MEDS: LIPITOR PO SCH (20:41)
[2018-07-23] MEDS: XOPENEX NEB INH SCH ×3 (03:31→16:04)
[2018-07-23] MEDS: ATROVENT NEB INH SCH ×3 (03:31→16:05)
[2018-07-23] MEDS: PRILOSEC PO SCH ×2 (05:10→06:19)
[2018-07-23] MEDS: KEFZOL 2 GM/D5W 2 GM/50 ML IVPB IV SCH ×2 (05:11→12:38)
[2018-07-23] MEDS: BENTYL PO SCH ×4 (05:11→16:22)
[2018-07-23] MEDS: HUMALOG SUBQ SCH ×3 (06:42→16:23)
--- NOTE | 2018-07-23 08:08 | Diag Imaging Result Doc PS360 ---
CHEST-2 VIEWS - 07/23/2018 INDICATION: pneumonia COMPARISON: 07/19/2018 FINDINGS: There is continued improvement in the ill-defined hazy infiltrates in the lung bases. No new infiltrates. No pneumothorax or significant pleural effusion. Heart size is normal. IMPRESSION: Continued improvement from prior. Electronically signed by Brayan Sorenson 07/23/2018 8:05 AM
[2018-07-23] MEDS: PREDNISONE PO SCH (09:23)
[2018-07-23] MEDS: NEURONTIN PO SCH (09:23)
[2018-07-23] MEDS: MAG-OX PO SCH (09:23)
[2018-07-23] MEDS: GLUCOPHAGE PO SCH ×2 (09:23→16:21)
[2018-07-23] MEDS: ELIQUIS PO SCH (09:24)
[2018-07-23] MEDS: CALTRATE 600 + D PO SCH (09:24)
[2018-07-23] MEDS: PULMICORT INH SCH (09:45)
[2018-07-23 11:13] LABS: INR 1.04; PROTIME 14.4 Seconds (11.0-16.0)
[2018-07-23] MEDS ORDERED: NS 250 ML ONE (13:29)
--- NOTE | 2018-07-23 14:30 | INFECTIOUS DISEASE PROGRESS NO ---
DATE: 07/23/2018 PRESENT ILLNESS: The patient has an oxacillin sensitive Staph aureus pneumonia with an associated oxacillin sensitive Staph aureus bacteremia. MEDICATIONS: This is day 2 of treatment with Ancef for the infection. Day 1 is considered the first day that the patient's blood cultures are sterile. Medication as mentioned above. The patient is on Ancef. The dose is 2 g IV every 8 hours. PHYSICAL EXAMINATION: Vital Signs: Temperature is 98.4 degrees, pulse 86, respirations 18, blood pressure 128/81. General: This is a somewhat ill-appearing, middle-aged female. She is in no acute distress, but she does have still a little bit of wheezing. Head/eyes/ears/nose/throat: She can hear my spoken words and see near objects. She does not have any white patches on her tongue. Neck: There is no pain with movement. Lungs: There were a few expiratory wheezes heard bilaterally, but it is definitely less than it had been in the days before today. Cardiovascular: Heart rate is regular. Abdomen: Soft and nontender. Neurologic: Patient is alert. She can ambulate. There is no tremor. LAB AND X-RAY: CBC shows a white count of 17,400, hemoglobin 12.6, and platelet count 602,000. Creatinine is 1. GFR is 54. Repeat blood cultures are negative. Chest x-ray shows improvement in the bibasilar infiltrates. ASSESSMENT AND PLAN: The patient has Staphylococcus aureus pneumonia with an accompanying bacteremia. I plan to continue Ancef for a total of 14 days. The patient's white count is elevated. However, I think this is due to the fact that she is on 40 mg of prednisone daily, rather than the fact that her infection is not doing well. PICC is being placed today, and tomorrow hopefully the patient will be discharged. I am putting in a consult for [employer] to supply the Ancef at home. The plan will be to have the patient come back to my office in 2 weeks, at which time we will get a chest x-ray and remove the PICC. COMORBIDITIES: The patient's comorbidities includes diabetes mellitus, chronic obstructive pulmonary disease, gastroesophageal reflux disease and asthma. The patient had been a cigarette smoker, but she says she is not going to start again. cc: Ramos Ruvalcaba MD
[2018-07-23 16:30] VITALS: BP 113/59
--- NOTE | 2018-07-23 22:29 | DISCHARGE SUMMARY ---
ADMISSION DATE: 07/18/2018 DISCHARGE DATE: 07/23/2018 CONSULTS: Infectious Disease. DIAGNOSTIC DATA: Chest x-ray with small infiltrates in both lung bases, favored to represent pneumonia. These were somewhat improved on repeated chest x-rays x2. DISCHARGE DIAGNOSES: 1. Methicillin-sensitive Staphylococcus aureus bacteremia. 2. Pneumonia. 3. Chronic obstructive pulmonary disease exacerbation. 4. Aslug-ac-oswaeld hypoxic respiratory failure. 5. Diabetes. 6. Hypertension. 7. Gastroesophageal reflux disease. 8. Hyperlipidemia. 9. Chronic pain. 10. History of pulmonary embolism. 11. Former tobacco abuser. HOSPITAL COURSE: The patient is a 57-year-old female with history of COPD; chronic hypoxic respiratory failure, on 3 L oxygen at home; previous DVT and PE; diabetes; GERD; chronic pain. She presented with 1-1/2 weeks of fever, purulent sputum and increasing oxygen requirements. Her shortness of breath was continuing to worsen, so she came to the ER. Here she had marked leukocytosis with a white count of 21,000. Chest x-ray showed a likely pneumonia. She had some wheezing. She was treated with Rocephin, steroids and nebulizer treatments. Her respiratory symptoms improved fairly rapidly; however, her initial blood cultures became positive for MSSA. Repeat cultures were obtained and remained negative. ID was consulted and recommended a 2-week course of IV antibiotics with cefazolin, which her blood cultures were sensitive to. On the day of discharge, she was stable on her home 3 L of oxygen. She was afebrile and stable for discharge, to follow up with her PCP and Infectious Disease. Her other chronic medical conditions were largely stable. DISCHARGE VITAL SIGNS: Temperature 98.4 degrees, pulse 86, respirations 18, blood pressure 128/81, O2 saturation 96% on 3 L by nasal cannula. DISCHARGE DIET: Low salt. DISCHARGE MEDICATIONS: 1. Norvasc 2.5 mg p.o. at bedtime. 2. Ambien 5 mg p.o. at bedtime. 3. Paxil 10 mg p.o. at bedtime. 4. Singulair 10 mg p.o. at bedtime. 5. Zinc as previously prescribed. 6. Albuterol inhaler p.r.n. 7. Bentyl 10 mg p.o. t.i.d. with meals. 8. Eliquis 5 mg p.o. b.i.d. 9. Gabapentin 600 mg p.o. b.i.d. 10. Metformin 500 mg p.o. b.i.d. 11. Omeprazole 40 mg p.o. daily. 12. Cefazolin 2 g q.8 hours IV for a total of 2 weeks. 13. Atorvastatin 10 mg p.o. at bedtime. 14. Medrol Dosepak as directed. 15. Tramadol 50 mg p.o. t.i.d. FOLLOWUP AND PLAN: Patient discharging home, to complete 2-week course of IV antibiotics with cefazolin for MSSA bacteremia. Continue Medrol Dosepak to finish treatment of COPD exacerbation, which is much improved. Followup with PCP and Infectious Disease. Greater than 30 minutes spent arranging discharge and counseling the patient.
== END 2018-07-23 16:32 | disposition home or self-care (01) | DRG 871 ==
LOC: ED 12:02 → SUATTDRO 19:52 → 4N 19:52
PROVIDERS: ATTEND Internal Medicine
CPT/HCPCS: 36569; 71020; 71046; 80048; 80053; 81001; 82550; 82553; 82784; 82805; 82948; 83605; 83880; 84484; 85025; 85610; 87040; 87077; 87186; 87275; 87276; 87804; 93005; 94640; 94761; 99285; A9270; J0690; J0696; J1815; J2930; J3370; J7050; J7506; J7512; XXXXX